=== PATIENT | female | born 1965 | race Caucasian/White ===

== ENCOUNTER → 2017-10-31 09:03 | Outpatient (CLI) | payer BC, SELFPAY ==
[2017-10-31 11:09] LABS: Anion Gap 8 (5-15); BUN 18 mg/dL (7-18); BUN/Creat Ratio 19.7 RATIO (10-20); Calcium,Total 8.9 mg/dL (8.5-10.1); Chloride 105 mmol/L (98-107); Creatinine, Serum 0.91 mg/dL (0.55-1.02); EST Glomerular Filtration Rate 69 mL/min (>60); Est Glom Filt Rate - Afr Amer 83 mL/min (>60); Glucose 80 mg/dL (74-106); Potassium 3.8 mmol/L (3.5-5.1); Sodium Level 137 mmol/L (136-145)
== END ==
PROVIDERS: Family Provider Family Medicine; PCP Family Medicine; Visit Provider Family Medicine
DX: I10 Essential (primary) hypertension (principal)
CPT/HCPCS: 36415; 80048

== ENCOUNTER → 2018-01-18 07:28 | Outpatient (CLI) | payer BC, SELFPAY ==
[2018-01-18 10:37] LABS: Anion Gap 6 (5-15); BUN 20 mg/dL (7-18); BUN/Creat Ratio 22.5 RATIO (10-20); Calcium,Total 9.2 mg/dL (8.5-10.1); Chloride 103 mmol/L (98-107); Cholesterol 206 mg/dL (200); Creatinine, Serum 0.89 mg/dL (0.55-1.02); EST Glomerular Filtration Rate 71 mL/min (>60); Est Glom Filt Rate - Afr Amer 86 mL/min (>60); Glucose 93 mg/dL (74-106); High Density Lipoprotein 55 mg/dL; Potassium 4.6 mmol/L (3.5-5.1); Sodium Level 137 mmol/L (136-145); Triglycerides 61 mg/dL; Very Low Density Lipoprotein 12 mg/dL (5-40)
== END ==
PROVIDERS: Family Provider Family Medicine; PCP Family Medicine; Visit Provider Family Medicine
DX: G43.909 Migraine, unspecified, not intractable, without status migrainosus (principal)
CPT/HCPCS: 36415; 80048; 80061

== ENCOUNTER → 2019-07-25 13:42 | Outpatient (CLI) | payer OTHER, SELFPAY ==
--- NOTE | 2019-07-25 14:42 | NEURO ---
NCS and/or EMG Patient Report Ordering Doctor: Facundo Torres DATE OF SERVICE: 07/25/19 Beverly Graves is a 54-year-old female presents for electrodiagnostic testing of the left upper limb. She has numbness and tingling in the left hand. Next Electrodiagnostic findings: Left median motor nerve demonstrates normal distal latency, amplitude and conduction velocity. Normal left ulnar motor response, including conduction across the elbow. Prolonged left median sensory latency at the wrist. Normal ulnar and radial sensory responses. On needle EMG, all muscles tested in the left upper limb showed no evidence of denervation with normal motor unit action potentials. Electrodiagnostic impression: This is an abnormal study in the left upper limb. 1. Electrodiagnostic findings demonstrate left-sided median mononeuropathy. This is consistent with a mild left carpal tunnel syndrome. 2. No electrodiagnostic evidence is noted for ulnar neuropathy. 3. Electrodiagnostic evidence for cervical radiculopathy. If there are any further questions, please do not hesitate to contact me
== END ==
PROVIDERS: Family Provider Family Medicine; PCP Family Medicine; Referring Provider Physician Assistant Surgical; Visit Provider Physician Assistant Surgical
DX: M54.12 Radiculopathy, cervical region (principal); R20.2 Paresthesia of skin
CPT/HCPCS: 95886; 95910

== ENCOUNTER → 2019-10-04 09:38 | Outpatient (CLI) | payer OTHER, SELFPAY ==
[2019-09-04 10:59] VITALS: BMI 33.0
--- NOTE | 2019-10-05 10:59 | PFT ---
INTRODUCTION: The patient is a 54-year-old female that presents for pulmonary function studies secondary to a diagnosis of shortness of breath. Respiratory therapy reports good patient effort. Bronchodilators were used during testing. INTERPRETATION: Forced expiration spirometry demonstrates no evidence of a large airways obstructive ventilatory defect. There was no significant response to aerosolized bronchodilators. Spirograms are of good quality and plateau normally. The respiratory flow volume loop appears normal. Body plethysmography was performed and reveals lung volumes to be within normal limits. Diffusing capacity by single breath CO is at the lower limits of normal. IMPRESSION: Normal spirometry and lung volumes. Diffusing capacity is at the lower limits of normal.
== END ==
PROVIDERS: Family Provider Family Medicine; PCP Family Medicine; Referring Provider Internal Medicine Critical Care Medicine; Visit Provider Internal Medicine Critical Care Medicine
DX: R05 Cough (principal); R06.02 Shortness of breath
CPT/HCPCS: 94060; 94726; 94729

== ENCOUNTER → 2019-10-17 12:55 | Outpatient (CLI) | payer OTHER, SELFPAY ==
[2019-09-04 10:59] VITALS: BMI 33.0
--- NOTE | 2019-10-17 13:00 | SP.MBSS_ITS ---
PRIMARY / SECONDARY DIAGNOSIS: dysphagia (R13.10) REFERRING PHYSICIAN: Dr. Luis Mcginnis MD. CURRENT DIET: regular textures, thin liquids DENTITION: WFL MENTAL STATUS: WNL RESPIRATORY STATUS: O2 via room air REASON FOR REFERRAL: The Patient is a 54 year old female referred for a modified barium swallow (MBS) study to objectively assess the Patients oropharyngeal swallow function under fluoroscopy secondary to reported coughing / choking over the past 3-4 months during ingestion of thin liquids (seldom with semisolids and solids); further reports transient motility based symptomology, with one incident in particularly resulting in ER visitation, with solid texture eventually expectorated; she reports she was able to breath throughout the episode, with the material removed without an acidic taste. MEDICAL HISTORY: Sinusitis, chronic coughing, history of bronchitis, history of pneumonia, hyperlipidemia, hypertension, atrial septal defect, history of parathyroidectomy, history of tubal ligation, history of tonsillectomy. PREVIOUS MODIFIED BARIUM SWALLOW STUDY: None ASSESSMENT PARAMETERS: The Patient participated in a Modified Barium Swallow (MBS) study on 10/17/2019. Dr. Freed was the radiologist present for this evaluation. This study was recorded in the lateral view and images were sent to PACs for storage. Scoring was completed through each trial using the 8-point Penetration-Aspiration Scale (PAS) and summarized via the Videofluoroscopic Dysphagia Scale (VDS) and the Bolus Residue Scale (BRS), with severity scoring through the Dysphagia Severity Rating Scale (DSRS) and the Swallowing Performance Scale (SPS), and recommended diet textures through the International Dysphagia Diet Standardisation Initiative (IDDSI) RESULTS OF THE EVALUATION: The Patient presents with mild oropharyngeal dysphagia (DSRS: 2; SPS: 3) with intermittent shallow transient penetration of thin liquids and mild pharyngeal phase retention. OBJECTIVE ASSESSMENT OF SWALLOW FUNCTION (QUANTITATIVE ? PER TRIAL): PENETRATION / ASPIRATION SCALE (MATHIS): 1 = does not enter airway 2 = enters airway/above vocal folds/ejected 3 = enters airway/above vocal folds/not ejected 4 = enters airway/contacts vocal folds/ejected 5 = enters airway/contacts vocal folds/not ejected 6 = enters airway/below vocal folds/ejected 7 = enters airway/below vocal folds/not ejected despite effort 8 = enters airway/below vocal folds/no effort PENETRATION / ASPIRATION SCALE (SCORE): Thin liquid - 5 mL tsp.: 1 Thin liquids via cup (single sip): 1 Thin liquids via cup (single sip): 2 Thin liquids via cup (single sip): 1 Thin liquids via straw (single sip): 1 Thin liquids via straw (sequential swallows): 1 Pudding via spoon: 1 Regular textured cookie: 1 Thin liquids via straw (chin tuck): 1* Thin liquids via straw (chin tuck): 2 Thin liquids via straw (chin tuck): 1 * denotes suboptimal execution OBJECTIVE ASSESSMENT OF SWALLOW FUNCTION (QUANTITATIVE ? AGGREGATE): VIDEOFLOROSCOPIC DYSPHAGIA SCALE (VDS): LIP CLOSURE: 0 (of 4) Intact BOLUS FORMATION: 0 (of 6) Intact MASTICATION: 0 (of 8) Intact APRAXIA: 0 (of 4.5) None TONGUE TO PALATE CONTACT: 0 (of 10) Intact PREMATURE BOLUS LOSS: 1.5 (of 4.5) <10% ORAL TRANSIT TIME: 0 (of 3) < 1.5s TRIGGERING OF PHARYNGEAL SWALLOW: 0 (of 4.5) Normal VALLECULAR RESIDUE: 4 (of 6) 10-50% LARYNGEAL ELEVATION: 9 (of 9) Impaired PYRIFORM SINUS RESIDUE: 9 (of 13.5) 10-50% COATING OF PHARYNGEAL WALL: 9 (of 9) Yes PHARYNGEAL TRANSIT TIME: 0 (of 6) <1.0s ASPIRATION: 6 (of 12) Supraglottic penetration BOLUS RESIDUE SCALE (BRS): 4 (of 6) residue in valleculae and piriforms OBJECTIVE ASSESSMENT OF SWALLOW FUNCTION (SEVERITY GRADING): DYSPHAGIA SEVERITY RATING SCALE (DSRS): 2 (mild) SWALLOWING PERFORMANCE SCALE (SPS): 3 (mild) OBJECTIVE ASSESSMENT OF SWALLOW FUNCTION (QUALITATIVE): ORAL PREPARATORY PHASE: competent bolus manipulation with fragmented swallowing (piecemeal deglutition) likely anticipatory in nature; sufficient anterior oral containment during oral manipulation; preserved management of breathing / bolus formation without disrupted E ? S ? E pattern ORAL TRANSITIONAL PHASE: no presence of transitional incompetence; sufficient bolus transportation; no bolus consolidation impairments; premature posterior bolus loss during execution of the chin tuck posture. PHARYNGEAL PHASE: no signs of pharyngeal dyssynchrony; mild reduction in anterior laryngeal excursion; sufficient / consistent laryngeal vestibule pressure generated to expel penetrated material; mild ? moderate pharyngeal dysmotility with consolidation within the vallecula (primarily with more viscous textures) and pyriforms (primarily with thin liquids); no signs of velopharyngeal impairments; intermittent transient shallow prandial penetration with complete ejection during trials of thin liquids; no further penetration / aspiration throughout trials. ESOPHAGEAL PHASE: no obvious esophageal phase abnormalities observed. CONTRIBUTING / COMPLICATING FACTORS AND NOTABLE FINDINGS: suspected cervical osteophytes located at the C-3 C-6 levels, possibly contributing to pharyngoesophageal motility disturbances. RESPONSE TO STRATEGIES: no direct benefit noted with execution of the chin tuck posture; mild benefits with reduction in bolus rate / volume adjustments. DYSPHAGIA ASSOCIATED MEDICAL CONSIDERATIONS / INTERVENTION CONSIDERATIONS: No aspiration noted throughout trials, despite the Patient notably coughing on 3 occasions following trials with and without transient shallow penetration events, though even this would not be expected to consistently elicit a cough response. I would consider additional assessment of the Patients esophageal phase functioning via gastroenterology given her reported symptoms which do correlate with esophageal phase dysphagia, though no obvious dysfunction was noted this date. INTERVENTION RECOMMENDATIONS AND CONSIDERATIONS: The Patient would likely benefit from 2-3 follow up skilled speech-language intervention sessions primarily targeting diet texture management and training / implementation of recommended compensatory strategies; and Patient education regarding dysphagia symptomology and optimal intake behaviors. POST ASSESSMENT EDUCATION: Results and recommendations were discussed with the Patient immediately following MBS completion, with the Patient verbalizing understanding and agreement with all recommendations and education provided. We discussed factors impacting effects of aspiration, to include: the quantity of aspiration, the depth of aspiration (trachea or distal airways), and the physical properties of the aspirate. We also discussed consequences of oropharyngeal dysphagia, to include pulmonary complications from tracheobronchial aspiration; potential for airway obstruction / asphyxiation; inadequate oral intake because of dysphagia; and possible complications in overall course of care. I provided brief overview of signs and symptoms of aspiration, with recommendations for the Patient to further discuss symptoms with the Patients primary care provider. DIET TEXTURE RECOMMENDATIONS: Will recommend a regular textured (IDDSI: 7), regular ? soft textured (IDDSI: 6), thin liquid diet (IDDSI: 0) diet RECOMMENDED COMPENSATORY STRATEGIES: Consider cutting tougher textures into bite sized pieces, reduced bolus volume / rate of ingestion, liquid chaser at reasonable intervals, seated upright at 90 degrees during PO intake, remain upright for 30-60 minutes post meal (GERD precaution), medications one at a time with a liquid chaser. IMAGE COUNT: [id number] Eleazar Lu M.A., CCC-HANDS HANGER, CBIS MBSImP Certified, LSVT Certified [facility] Speech-Language Pathology Department [email or web address]
--- NOTE | 2019-10-17 13:00 | RAD_ITS ---
STUDY: SWALLOWING STUDY REASON FOR EXAM: Female, 54 years old. FREQUENT CHOKING TECHNIQUE: The examination was performed with Speech Pathology in attendance. Under fluoroscopic observation, the patient ingested thin barium, thick barium, barium pudding, and barium coated cracker. FLUOROSCOPY TIME: 1:07 minutes/seconds. 1408 fluoroscopic images were obtained. RADIOLOGIST INVOLVEMENT: Radiologist was present and providing direct supervision. COMPARISON: None. FINDINGS: The following was observed during swallowing of the various mixtures of barium: Thin Barium: There was no evidence of aspiration or laryngeal penetration. Barium Pudding: There was no evidence of aspiration or laryngeal penetration. Barium Coated Cracker: There was no evidence of aspiration or laryngeal penetration. RAD/Swallowing Function w/Video IMPRESSION: Normal tailored barium swallow study. No evidence of increased risk for aspiration. The swallow study findings were discussed with the patient by the speech pathologist at the conclusion of the examination. Please see speech pathology report for more information and recommendations. Electronically Signed: Uziel Freed, at 13:52 EST , Service support ,
== END ==
PROVIDERS: Family Provider Family Medicine; PCP Family Medicine; Referring Provider Internal Medicine Critical Care Medicine; Visit Provider Internal Medicine Critical Care Medicine
DX: R13.10 Dysphagia, unspecified (principal)
CPT/HCPCS: 74230; 92611

== ENCOUNTER → 2020-02-20 | Outpatient (CLI) | payer OTHER, SELFPAY ==
[2019-11-29 06:20] VITALS: BMI 32.5
[2020-02-25 16:20] LABS: HPV Reflexed? NOT INDICATED
== END | disposition home or self-care (01) ==
PROVIDERS: PCP Family Medicine; Visit Provider Nurse Practitioner Adult Health
DX: Z00.00 Encounter for general adult medical examination without abnormal findings (principal)
CPT/HCPCS: 88175; G0145

== ENCOUNTER → 2020-02-25 16:24 | Outpatient (CLI) | payer OTHER, SELFPAY ==
[2019-11-29 06:20] VITALS: BMI 32.5
--- NOTE | 2020-02-25 16:25 | BI_ITS ---
MAMMOGRAPHY - BILATERAL SCREENING REASON FOR EXAM: Female, 54 years old. Routine annual screening examination. PERTINENT HISTORY: Aunt with breast cancer. TECHNIQUE: Digital bilateral breast johny (3D mammographic acquisition) in the CC and MLO projections. 2-D mediolateral oblique (MLO) and craniocaudad (CC) views of both breasts were obtained. CAD: Full Field Digital Mammography with Computer Added Detection was performed. COMPARISON: Comparison is made with prior study dated September 15, 2016 and August 19, 2015. FINDINGS: Breast Composition: The breasts are heterogeneously dense, which may obscure small masses. There are no dominant masses or suspicious calcifications. No other significant abnormalities are identified. There has been no significant change since the prior study. BI/SCREEN MAMM (CAD) W/JOHNY BILAT IMPRESSION: Stable bilateral screening mammogram. Yearly follow-up mammogram recommended. (A) ASSESSMENT CATEGORY: BIRADS Category 1: Negative. A letter regarding these results will be sent to the patient by the facility within 30 days. Approximately 10% of breast cancers are not detected by mammography. A normal mammogram should not delay biopsy of a clinically suspicious abnormality. [id number] Electronically Signed: Uziel Freed, at 8:13 EDT , Service support ,
== END ==
PROVIDERS: PCP Family Medicine; Referring Provider Nurse Practitioner Adult Health; Visit Provider Nurse Practitioner Adult Health
DX: Z12.31 Encounter for screening mammogram for malignant neoplasm of breast (principal)
CPT/HCPCS: 77063; 77067

== ENCOUNTER → 2020-02-29 10:06 | Outpatient (CLI) | payer OTHER, SELFPAY ==
[2019-11-29 06:20] VITALS: BMI 32.5
--- NOTE | 2020-02-29 10:10 | RAD_ITS ---
STUDY: X-RAY - PELVIS REASON FOR EXAM: Female, 54 years old. INFLAMMATORY POLYARTHROPATHY TECHNIQUE: One view of the pelvis was obtained. COMPARISON: None. FINDINGS: There is a non-specific bowel gas pattern. Prior tubal ligation clips are seen. Normal bilateral iliac wings, sacroiliac joints and visualized sacrum. Normal visualized bilateral superior and inferior pubic rami. Normal pubic symphysis. Normal ischial tuberosities. Normal visualized right femoral head. There is osteoarthritic spur formation of the right acetabular rim. There is moderate articular joint space narrowing of the right hip. Normal visualized left femoral head. There is osteoarthritic spur formation of the left acetabular rim. There is moderate articular joint space narrowing of the left hip. RAD/Pelvis 1 or 2 Views IMPRESSION: Bilateral acetabular spurring with moderate degree of joint space narrowing of both hip joints. Electronically Signed: Uziel Freed, at 15:08 EDT , Service support ,
[2020-02-29 12:23] LABS: Absolute Lymphocyte Count 2.14 X10^3/uL (0.83-4.51); Absolute Neutrophil Count 3.4 X10^3/uL (2.0-7.7); Basophil# 0.05 X10^3/uL; Basophil% 0.8 % (0-1); Eosinophil# 0.29 X10^3/uL; Eosinophils% 4.7 % (0-5); Hematocrit 34.3 % (37-47); Hemoglobin 11.7 g/dL (12.0-15.0); Lymphocyte # 2.14 X10^3/ul (4.0); Lymphocyte % 34.3 % (19-41); Mean Corp Hgb Conc 34.1 g/dL (32-36); Mean Corpuscular Hgb 29.8 pg (27.0-32.0); Mean Corpuscular Volume 87.3 fL (81-99); Mean Platelet Vol. 10.7 fl (6.2-12.0); Monocyte# 0.38 X10^3/uL; Monocyte% 6.1 % (0-10); NRBC Flagged by Analyzer 0 % (0-5); Neutrophil # 3.35 X10^3/uL (2.7-7.7); Neutrophil % 53.8 % (47-70); Platelet Count 263 K/mm3 (150-450); RBC Distribution Width CV 12.3 % (11.6-14.6); RBC Distribution Width SD 38.8 fl (35.1-43.9); Red Blood Count 3.93 M/mm3 (4.2-5.4); White Blood Count 6.2 K/mm3 (4.4-11.0)
[2020-02-29 12:34] LABS: Erythrocyte Sedimentation Rate 21 mm/hr (0-30)
[2020-02-29 12:46] LABS: ALB/GLOB Ratio 1.1 RATIO (0.9-2.4); AST(SGOT) 26 U/L (15-37); Alanine Aminotransfer ALT/SGPT 51 U/L (13-56); Albumin, Serum 3.7 g/dL (3.2-5.0); Alkaline Phosphatase 107 U/L (45-117); Anion Gap 8 (5-15); BUN 16 mg/dL (7-18); BUN/Creat Ratio 20.9 RATIO (10-20); CRP 4.73 mg/L (0.0-3.0); Calcium,Total 9.3 mg/dL (8.5-10.1); Chloride 105 mmol/L (98-107); Creatinine, Serum 0.76 mg/dL (0.55-1.02); EST Glomerular Filtration Rate 84 mL/min (>60); Est Glom Filt Rate - Afr Amer 101 mL/min (>60); Globulin 3.5 g/dL (2.2-4.2); Glucose 85 mg/dL (74-106); Potassium 4.1 mmol/L (3.5-5.1); Protein, Total 7.2 g/dL (6.4-8.2); Rheumatoid Factor < 10.0 IU/mL (<15); Sodium Level 138 mmol/L (136-145)
[2020-02-29 13:03] LABS: Hepatitis B Surface Antibody Non-Reactive; Hepatitis B Surface Antigen Non-Reactive (Nonreactive); Hepatitis C Antibody Non-Reactive (Nonreactive)
[2020-03-03 20:42] LABS: ANTINUCLEAR ANTIBODIES DIRECT Negative (Negative)
[2020-03-04 04:03] LABS: CCP IgG Antibodies 4 units (0-19); Hepatitis B Core AB IgM Negative (Negative)
== END ==
PROVIDERS: PCP Family Medicine; Referring Provider Internal Medicine Rheumatology; Visit Provider Internal Medicine Rheumatology
DX: M06.4 Inflammatory polyarthropathy (principal); M79.7 Fibromyalgia; M50.30 Other cervical disc degeneration, unspecified cervical region; M47.897 Other spondylosis, lumbosacral region; K21.9 Gastro-esophageal reflux disease without esophagitis; I10 Essential (primary) hypertension; Z87.74 Personal history of (corrected) congenital malformations of heart and circulatory system
CPT/HCPCS: 36415; 72170; 80053; 85025; 85652; 86038; 86140; 86200; 86431; 86705; 86706; 86803; 87340

== ENCOUNTER → 2020-03-04 08:52 | Outpatient (CLI) | payer OTHER, SELFPAY ==
[2019-11-29 06:20] VITALS: BMI 32.5
[2020-03-04 10:27] LABS: Anion Gap 5 (5-15); BUN 12 mg/dL (7-18); BUN/Creat Ratio 14.1 RATIO (10-20); Calcium,Total 9.7 mg/dL (8.5-10.1); Chloride 105 mmol/L (98-107); Cholesterol 241 mg/dL (200); Creatinine, Serum 0.85 mg/dL (0.55-1.02); EST Glomerular Filtration Rate 74 mL/min (>60); Est Glom Filt Rate - Afr Amer 89 mL/min (>60); Glucose 94 mg/dL (74-106); High Density Lipoprotein 52 mg/dL; Potassium 4.1 mmol/L (3.5-5.1); Sodium Level 139 mmol/L (136-145); Triglycerides 184 mg/dL; Very Low Density Lipoprotein 37 mg/dL (5-40)
== END ==
PROVIDERS: PCP Family Medicine; Referring Provider Family Medicine; Visit Provider Family Medicine
DX: I10 Essential (primary) hypertension (principal)
CPT/HCPCS: 36415; 80048; 80061

== ENCOUNTER → 2020-04-14 08:20 | Outpatient (CLI) | payer OTHER, SELFPAY ==
[2019-11-29 06:20] VITALS: BMI 32.5
[2020-04-14 09:58] LABS: Absolute Lymphocyte Count 1.78 X10^3/uL (0.83-4.51); Absolute Neutrophil Count 4.5 X10^3/uL (2.0-7.7); Basophil# 0.02 X10^3/uL; Basophil% 0.3 % (0-1); Eosinophil# 0.13 X10^3/uL; Eosinophils% 1.9 % (0-5); Hematocrit 38.4 % (37-47); Hemoglobin 12.8 g/dL (12.0-15.0); Lymphocyte # 1.78 X10^3/ul (4.0); Lymphocyte % 25.9 % (19-41); Mean Corp Hgb Conc 33.3 g/dL (32-36); Mean Corpuscular Hgb 30.2 pg (27.0-32.0); Mean Corpuscular Volume 90.6 fL (81-99); Mean Platelet Vol. 10.7 fl (6.2-12.0); Monocyte# 0.47 X10^3/uL; Monocyte% 6.8 % (0-10); NRBC Flagged by Analyzer 0 % (0-5); Neutrophil # 4.46 X10^3/uL (2.7-7.7); Platelet Count 224 K/mm3 (150-450); RBC Distribution Width CV 13.2 % (11.6-14.6); RBC Distribution Width SD 42.8 fl (35.1-43.9); Red Blood Count 4.24 M/mm3 (4.2-5.4); White Blood Count 6.9 K/mm3 (4.4-11.0)
[2020-04-14 10:13] LABS: AST(SGOT) 21 U/L (15-37); Alanine Aminotransfer ALT/SGPT 43 U/L (13-56); Albumin, Serum 3.5 g/dL (3.2-5.0); Alkaline Phosphatase 87 U/L (45-117); Anion Gap 5 (5-15); BUN 17 mg/dL (7-18); BUN/Creat Ratio 23.2 RATIO (10-20); Calcium,Total 9.4 mg/dL (8.5-10.1); Chloride 104 mmol/L (98-107); Creatinine, Serum 0.73 mg/dL (0.55-1.02); EST Glomerular Filtration Rate 87 mL/min (>60); Est Glom Filt Rate - Afr Amer 106 mL/min (>60); Globulin 3.6 g/dL (2.2-4.2); Glucose 94 mg/dL (74-106); Potassium 3.9 mmol/L (3.5-5.1); Protein, Total 7.1 g/dL (6.4-8.2); Sodium Level 136 mmol/L (136-145)
== END ==
PROVIDERS: PCP Family Medicine; Referring Provider Internal Medicine Rheumatology; Visit Provider Internal Medicine Rheumatology
DX: M06.4 Inflammatory polyarthropathy (principal); M79.7 Fibromyalgia; M50.30 Other cervical disc degeneration, unspecified cervical region; M47.897 Other spondylosis, lumbosacral region; K21.9 Gastro-esophageal reflux disease without esophagitis; I10 Essential (primary) hypertension; Z87.74 Personal history of (corrected) congenital malformations of heart and circulatory system; Z79.899 Other long term (current) drug therapy
CPT/HCPCS: 36415; 80053; 85025

== ENCOUNTER → 2020-05-22 16:21 | Outpatient (CLI) | payer OTHER, SELFPAY ==
[2019-11-29 06:20] VITALS: BMI 32.5
--- NOTE | 2020-05-22 16:10 | EMB_PTH ---
PATIENT: JOY HARO LOC: [facility] U#:[id number] AGE/SX: 60/F ROOM: RE05/22/[address]: Dr. Dara Payton DO : 1965 BED: DIS: SPEC #: [id number] RECD: 05/22/20 17:22 STATUS: LEE LAUREN #: [id number] SIVA: 05/22/20 16:[address]: Dara Payton DEPT: SURGICAL PATHOLOGY RECD BY: Eleazar Bonilla ENTERED: 05/23/20 09:01 SP TYPE: ENDOM BX/C PEDRO DR: Dr. Дмитрий Cantor MD Tissues: Endometrium, NOS Procedures: Surgery Specimen Level IV HEADER OPERATION: Endometrial biopsy PRE-OP DIAGNOSIS: Irregular bleeding TISSUE SUBMITTED: Endometrial biopsy MICROSCOPIC DIAGNOSIS Endometrial biopsy: Proliferative endometrium. Fragments of benign endocervical mucosa. SJ:janelle 05/27/20 MICROSCOPIC DESCRIPTION Slides are reviewed. GROSS DESCRIPTION Received in fixative is one container labeled with the patient's name and designated endometrial biopsy. The specimen consists of multiple fragments of hemorrhagic soft tissue mixed with ba mucoid tissue that in aggregate measure 2.5 x 1.5 x 0.2 cm. The specimen is totally submitted in one cassette. / SJ:janelle 05/23/20 TC:4 CPT: 03734
[2020-05-22 17:50] LABS: Thyroid Stim Hormone (TSH) 2.59 uIU/mL (0.358-3.74)
== END ==
PROVIDERS: PCP Family Medicine; Visit Provider Student in an Organized Health Care Education/Training Program
DX: N92.6 Irregular menstruation, unspecified (principal)
CPT/HCPCS: 36415; 84443; 88305

== ENCOUNTER → 2020-07-14 12:59 | Outpatient (CLI) | payer OTHER, SELFPAY ==
[2020-06-18 14:30] VITALS: BMI 33.6
== END ==
PROVIDERS: PCP Family Medicine; Referring Provider Internal Medicine Cardiovascular Disease; Visit Provider Internal Medicine Cardiovascular Disease
DX: Z01.810 Encounter for preprocedural cardiovascular examination (principal); I11.9 Hypertensive heart disease without heart failure; E78.5 Hyperlipidemia, unspecified
CPT/HCPCS: 93306; A4216

== ENCOUNTER 2020-07-24 15:24 | Observation (INO) | payer OTHER, SELFPAY ==
[2019-11-29 06:20] VITALS: BMI 32.5
[2020-06-18 14:30] VITALS: BMI 33.6
--- NOTE | 2020-07-23 16:36 | HP.PCM_ITS ---
History and Physical Date of Admission: 07/24/20 Date: 07/23/2020 Name: JOY GRAVES Age: 55 Date of : 1965 Joy Graves, a 55 year old female, presents for total laparoscopic hysterectomy, bilateral salpingo-oophorectomy, cystoscopy for abnormal uterine bleeding and menorrhagia. Patient reports heavy irregular menses. She occasionally skips a month. She changes tampons and pads about 4 times daily and bleeds through them. she also has pelvic pain with her menses. She had an endometrial biopsy which was negative for dysplasia or hyperplasia and a normal TSH. She has had a tubal ligation in the past. All management options for heavy bleeding were discussed including: IUD, oral contraception, ablation, and hysterectomy. Patient elects for hysterectomy and bilateral salpingo- oophorectomy. MEDICATIONS HISTORY: Patient is also takin. amitriptyline 100 mg tablet, One tablet by mouth daily headaches 2. amlodipine 5 mg-olmesartan 40 mg tablet, One tablet by mouth once daily 3. 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 Mother: Hypertension. Father: DM II. MENSTRUAL HISTORY: LMP Known?- Definite Amount/Duration - 8 days, Regularity - Irregular, Frequency - variable days, LMP - 05/29/20, Age Onset Menarche - 12 PAST PREGNANCIES: Total Pregnancies - 1; Full Term Pregnancies - 0; Premature - 0; Abortions, Induced - 0; Abortions, Spontaneous - 1; Ectopics - 0; Multiple Births - 0; Living Children - 0 SURGICAL HISTORY: 1. 08/19/2001 Tubal with filshe clips ; Ekaterina Howell M.D. - 2. Tonsillectomy 1968 ; - 3. Lasik 1996 ; - 4. 11/02/2000 open heart surgery, for atrial septal defect repair. Had normal cardiac catheterization at this time as well. Review of Systems: GENERAL - Denies fever, or chills SKIN - Denies skin changes EYES - Denies visual changes EARS - Denies difficulty hearing NOSE - Denies nasal congestion or bleeding MOUTH - Denies sore throat or difficulty swallowing NECK - Denies pain or swelling RESPIRATORY - Denies shortness of breath or wheezing CARDIOVASCULAR - Denies palpitations or chest pain GASTROINTESTINAL - Denies nausea, vomiting, diarrhea, constipation GENITOURINARY - Denies dysuria, frequency of urination, incontinence of urine MUSCULOSKELETAL - Denies joint or muscle pain NEUROLOGICAL - Denies localized numbness or weakness PSYCHIATRIC - Denies depression or anxiety ENDOCRINE - Denies heat or cold intolerance, weight loss or gain HEMATO-IMMUNOLOGIC - Denies excessive bleeding with cuts PHYSICAL EXAM Vital Signs Temp Pulse Resp BP Pulse Ox 07/24/20 11:21 98.0 F 80 16 149/85 H 99 CONSTITUTIONAL - NAD, well nourished, and well developed SKIN - No rash, lesions, or ulcers HEENT - Normocephalic, PERRLA, EOMI LUNGS - normal respiratory rate and rhythm CARDIAC - Regular rate and rhythm without rubs, murmurs, or gallops ABDOMEN - Without hepatosplenomegaly, distention, masses, rebound, or guarding; normal bowel sounds; no hernias EXTREMITIES - No edema or calf tenderness NEUROLOGICAL - Cranial nerves II-XII grossly intact PSYCHIATRIC - A and O to time, place, person, mood and affect LABS: Laboratory Last Values COVID-19 (MARVIN) Not Detected (Not Detected) 07/17/20 09:38 Laboratory Results - last 24 hr 07/24/20 07/24/20 07/24/20 11:23 11:23 11:23 WBC 6.6 RBC 4.18 L Hgb 12.3 Hct 37.8 MCV 90.4 MCH 29.4 MCHC 32.5 RDW Std Deviation 40.4 RDW Coeff of Tamara 12.2 Plt Count 228 MPV 10.2 Sodium 137 Potassium 4.0 Chloride 105 Carbon Dioxide 26.0 Anion Gap 6 BUN 11 Creatinine 0.83 Estim Creat Clear Calc 57.79 Est GFR (MDRD) Af Amer 92 Est GFR (MDRD) Non-Af 76 BUN/Creatinine Ratio 13.3 Glucose 92 Calcium 9.6 Blood Type A NEGATIVE Antibody Screen NEGATIVE ASSESSMENT/PLAN: 1. Abnormal Uterine And Vaginal Bleeding, Unspecified Heavy menses for almost 2 years, some months bleeding twice monthly. TSH and endometrial biopsy are within normal limits. Pelvic US demonstrated normal sized uterus, normal sized ovaries. small anterior fibroid, calcification in endocervical canal Patient scheduled for TLH-BSO, cystoscopy on July 22. Reviewed R/B/A with patient today. Risks include, but are not limited to: risk of bleeding to the point of transfusion, infection, injury to surrounding tissue (bowel/bladder requiring prolonged catheter use), VTE, ICU admission. Consents signed. Patient has seen her resistance welding machine operator who performed an EKG and ECHO which was found to be within normal limits with normal ejection fraction. She has also recently seen her primary care physician. Cleared by both for surgery.
[2020-07-24] VITALS (9 sets, daily range): BP systolic 128–149; BP diastolic 69–98; PULSE 73–84; RESP 14–18; TEMP 36.1–36.7; O2SAT 94–99; BMI 33.2
[2020-07-24 11:33] LABS: Hematocrit 37.8 % (37-47); Hemoglobin 12.3 g/dL (12.0-15.0); Mean Corp Hgb Conc 32.5 g/dL (32-36); Mean Corpuscular Hgb 29.4 pg (27.0-32.0); Mean Corpuscular Volume 90.4 fL (81-99); Mean Platelet Vol. 10.2 fl (6.2-12.0); Platelet Count 228 K/mm3 (150-450); RBC Distribution Width CV 12.2 % (11.6-14.6); RBC Distribution Width SD 40.4 fl (35.1-43.9); Red Blood Count 4.18 M/mm3 (4.2-5.4); White Blood Count 6.6 K/mm3 (4.4-11.0)
[2020-07-24] MEDS: Lactated Ringers 1,000 ML 100 ML IV ×2 (11:33→14:45)
[2020-07-24 12:09] LABS: Anion Gap 6 (5-15); BUN 11 mg/dL (7-18); BUN/Creat Ratio 13.3 RATIO (10-20); Calcium,Total 9.6 mg/dL (8.5-10.1); Chloride 105 mmol/L (98-107); Creatinine, Serum 0.83 mg/dL (0.55-1.02); EST Glomerular Filtration Rate 76 mL/min (>60); Est Glom Filt Rate - Afr Amer 92 mL/min (>60); Estimated Creatinine Clearance 57.79 ml/min; Glucose 92 mg/dL (74-106); Sodium Level 137 mmol/L (136-145)
[2020-07-24] MEDS: Cefotetan 2 GM in 0.9% NS 100 ML IV (12:59)
--- NOTE | 2020-07-24 13:00 | HYST_PTH ---
PATIENT: JOY HARO LOC: [facility] U#:[id number] AGE/SX: 55/F ROOM: MS310 RE07/24/[address]: Dr. Dara Payton DO : 1965 BED: 1 DIS: 07/25/2020 SPEC #: [id number] RECD: 07/24/20 15:50 STATUS: LEE REQ #: [id number] SIVA: 07/24/20 13:[address]: Dara Payton DEPT: SURGICAL PATHOLOGY RECD BY: Reena Roberts ENTERED: 07/25/20 07:01 SP TYPE: HYSTERECT OTHR DR: Dr. Дмитрий Cantor MD Tissues: Uterus, NOS Procedures: Surgery Specimen Level V HEADER OPERATION: Hysterectomy, TLH, salpingo-oophorectomy, cystoscopy PRE-OP DIAGNOSIS: Abnormal uterine bleeding TISSUE SUBMITTED: Uterus, cervix, bilateral fallopian tubes and ovaries MICROSCOPIC DIAGNOSIS Uterus, cervix, bilateral fallopian tubes and ovaries, hysterectomy and bilateral salpingo-oophorectomy: Cervix - no pathologic diagnosis. Endometrium - proliferative endometrium. Myometrium - intramural leiomyomas (largest measuring 1 cm in greatest dimension). Bilateral fallopian tubes - no pathologic diagnosis. Right ovary - no pathologic diagnosis. Left ovary - physiologic follicular cyst. SJ:janelle 07/28/20 MICROSCOPIC DESCRIPTION Slides are reviewed. GROSS DESCRIPTION Received in fixative is one container labeled with the patient's name and designated uterus, cervix, bilateral fallopian tubes and ovaries. The specimen consists of a hysterectomy specimen consisting of uterus with cervix and attached bilateral fallopian tubes and ovaries. The uterus with cervix weighs 40 gm and measures 7 x 4 x 3 cm. The serosal surface is ba, glistening. The ectocervical mucosa is unremarkable. The external os is circular in contour. The endocervical canal measures 2.5 cm in length and the endocervical mucosa is ba, glistening and unremarkable. The triangular endometrial cavity measures 4 cm in length and up to 1.5 cm in width. The endometrium is ba, glistening without any mass lesion and measures 0.1 cm in thickness. Sections of the uterine wall reveal multiple nodular masses, the largest measuring 1 cm in greatest dimension. Sections of these masses reveal ba whorled cut surfaces without areas of hemorrhage, necrosis or cystic degeneration. The uninvolved uterine wall measures up to 1.5 cm in thickness. The right fallopian tube measures 4 cm in length and 0.5 cm in diameter. The fimbrial end is identified. It is interrupted in the middle consistent with previous tubal ligation. Sections reveal unremarkable cut surfaces. The right ovary measures 2.3 x 1.8 x 1.5 cm. Sections reveal unremarkable cut surfaces. The left fallopian tube is similar appearance to right and measures 5.5 cm in length and 0.5 cm in diameter. No tubo-ovarian adhesions are identified on the right or left side. The left ovary measures 2.5 x 1.5 x 1.2 cm. Sections reveal a cyst filled with parish, turbid fluid measuring 1 cm in greatest dimension. Jaw Skinner sections are submitted in ten cassettes as follows: 1 - anterior cervix, 2 - posterior cervix, 3 & 4 - anterior uterine wall, 5 & 6 - posterior uterine wall, section of uterine wall also contains the nodular masses, 7 - nodular masses, 8 - right fallopian tube and ovary, 9 - left fallopian tube and ovary, 10 - left ovary. / SJ:rg 07/25/20 TC:1 CPT: 73452
--- NOTE | 2020-07-24 15:10 | PCM.OPRPT ---
Report of Operation Date of Procedure: 07/24/20 Pre-Operative Diagnosis: Abnormal uterine bleeding, menorrhagia, pelvic pain Post-Operative Diagnosis: Abnormal uterine bleeding, menorrhagia, pelvic pain Surgery/Procedure Performed:: Total laparoscopic hysterectomy bilateral salpingo-ophorectomy, cystoscopy Description of Surgical Findings:: Normal appearing external genitalia. Uterus with minimal descensus, sounded to 7 cm. Normal-appearing bilateral fallopian tubes and ovaries. Filshie clip noted in the posterior cul-de-sac. Normal-appearing uterus without fibroids. Small amount of adhesions of bowel fat to right pelvic sidewall. 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 All risks, benefits, alternatives were discussed with the patient. Risks include but are not limited to: Risk of bleeding to the point of transfusion, infection, injury to surrounding tissue including bowel or bladder requiring prolonged Ackerman catheter use, VTE, ICU admission. Patient is aware and consented. Patient was taken to the operating room and placed under general anesthesia. Patient was placed in dorsal lithotomy position prepped and draped in the usual sterile fashion. Ackerman catheter placed in the bladder. Single-tooth tenaculum placed on anterior lip of the cervix, weighted speculum placed in the posterior vagina, and Hess retractor used to visualize entire cervix. Uterus sounded to 7 cm, cervix partially dilated. Uterine manipulator placed and sutured in with [id number] sutures at 3 and 9 o'clock position. Gloves were changed and attention turned to the anterior abdominal wall. A 2 cm supraumbilical incision made vertically. Subcutaneous tissue dissected using RP and blunt dissection. Fascia was grasped with 2 Fawn clamps and incised between. Fascia tagged with suture on either side of the incision. Peritoneum was entered bluntly. A 10 mm Bryant port placed. Balloon insufflated and trocar tied to suture. Inspection of the abdominal cavity noted normal-appearing bilateral tubes and ovaries normal-appearing cervix, small amount of adhesions on the right pelvic sidewall. Right and left 5 mm trocar ports placed under direct visualization. Attention turned to the left of the pelvis, left ureter identified. Left round ligament incised using monopolar cautery vesicouterine peritoneum identified and bladder flap created. Left IP ligament grasped coagulated in 2 locations sequentially and cut. Dissection carried towards the uterus in a similar fashion. Broad ligament further dissected using monopolar cautery. Bladder flap further developed using monopolar cautery. Attention then turned to right pelvic sidewall. Ureter was identified. Right round ligament identified and cauterized. Vesicouterine peritoneum identified on this side bladder flap carried down towards the midline. Right IP ligament coagulated sequentially to locations and cut. This was then carried toward seizures in a similar fashion. Broad ligament dissected using monopolar cautery to skeletonize the uterine arteries. Right uterine artery was coagulated and cut in several locations, allowing the uterine artery to fall away from the cervix and the manipulator cup. Further dissection of the bladder was made again. Left uterine artery was coagulated and cut allowing the artery to fall away from the cervix cup in a similar fashion to the right. Colpotomy made posteriorly and carried around a 360 degree manner. Uterus cervix fallopian tubes and ovaries were removed through the vagina. Insufflation was then stopped. Vaginal cuff was closed in a running locking stitch starting at the anterior apex towards midline and posterior apex towards midline these were tied in the middle. Gloves were changed and inspection of the intra-abdominal cavity was completed again, noting hemostasis. Insufflation was stopped, trochars were removed. Fascia was closed at the 10 mm port site. Skin closed with running subcuticular stitches and glue. Cystoscopy was completed with in tact bladder dome and bilateral ureteral jets. 1 Filshie clip was still noted in the posterior cul-de-sac adhesed, this was left in place due to adhesions. At the end of the procedure all needle, lap, sponge counts were correct x3.UOP 700cc - Admit VTE Documentation VTE Mechan Device Prophylaxis: SCD's
[2020-07-24] MEDS: Ketorolac 15 MG/ML Vial IV (20:12)
[2020-07-24] MEDS: 0.9% Saline Lock 10 ML Syringe IV (20:12)
[2020-07-24] MEDS: Enoxaparin 40 MG/0.4 ML Syringe SC (20:12)
[2020-07-24] MEDS: 0.9% Normal Saline 1,000 ML 125 ML IV (20:12)
[2020-07-25 00:01] VITALS: BP 130/65; PULSE 91; RESP 18; TEMP 36.6; O2SAT 96
[2020-07-25] MEDS: Acetaminophen 500 MG Tablet 1000 MG PO (00:16)
[2020-07-25 03:45] VITALS: BP 131/61; PULSE 84; RESP 14; TEMP 36.6; O2SAT 98
[2020-07-25] MEDS: 0.9% Saline Lock 10 ML Syringe IV (03:47)
[2020-07-25] MEDS: Ketorolac 15 MG/ML Vial IV (03:47)
[2020-07-25 05:46] LABS: Hematocrit 30.9 % (37-47); Hemoglobin 10.6 g/dL (12.0-15.0); Mean Corp Hgb Conc 34.3 g/dL (32-36); Mean Corpuscular Hgb 30.5 pg (27.0-32.0); Mean Platelet Vol. 10.6 fl (6.2-12.0); Platelet Count 229 K/mm3 (150-450); RBC Distribution Width CV 11.9 % (11.6-14.6); RBC Distribution Width SD 38.5 fl (35.1-43.9); Red Blood Count 3.47 M/mm3 (4.2-5.4); White Blood Count 11.5 K/mm3 (4.4-11.0)
[2020-07-25 08:00] VITALS: BP 117/75; PULSE 80; RESP 14; TEMP 37; O2SAT 98
--- NOTE | 2020-07-25 08:13 | PN.OBGYN_ITS ---
Subjective: POD#1 Pain controlled. Voiding spontaneously. Tolerating PO. Ambulated in hallway. - Physical Exam Vitals/I&O's: Vital Signs Temp Pulse Resp BP Pulse Ox 98 F 84 14 131/61 H 98 07/25/20 03:45 07/25/20 03:45 07/25/20 03:45 07/25/20 03:45 07/25/20 03:45 Oxygen Delivery Method Room Air Weight: 79.7 kg Body Mass Index (BMI) 33.2 Intake and Output for Last 24 Hours 07/23/20 07/24/20 07/25/20 23:59 23:59 23:59 Intake Total 1645 / 2295 2214.58 / 2214.58 Output Total 2100 / 2100 Balance 1645 / 1295 114.58 / 114.58 General: Alert, Oriented x3, No apparent distress HEENT: Atraumatic, Normocephalic Neck: Supple Lungs: Clear to auscultation Cardiovascular: Regular rate, Regular Rhythm Abdomen: Bowel Sounds Present, Soft - Mildly tender Extremities: No edema Skin: No rashes Neurological: Cranial nerves II-XII grossly intact Psych/Mental Status: Normal Affect Laboratory Results 07/24/20 11:23: Blood Type A NEGATIVE, Antibody Screen NEGATIVE 07/24/20 11:23: WBC 6.6, RBC 4.18 L, Hgb 12.3, Hct 37.8, MCV 90.4, MCH 29.4, MCHC 32.5, RDW Std Deviation 40.4, RDW Coeff of Tamara 12.2, Plt Count 228, MPV 10.2 07/24/20 11:23: Sodium 137, Potassium 4.0, Chloride 105, Carbon Dioxide 26.0, Anion Gap 6, BUN 11, Creatinine 0.83, Estim Creat Clear Calc 57.79, Est GFR (MDRD) Af Amer 92, Est GFR (MDRD) Non-Af 76, BUN/Creatinine Ratio 13.3, Glucose 92, Calcium 9.6 07/25/20 05:25: WBC 11.5 H, RBC 3.47 L, Hgb 10.6 L, Hct 30.9 L, MCV 89.0, MCH 30.5, MCHC 34.3 D, RDW Std Deviation 38.5, RDW Coeff of Tamara 11.9, Plt Count 229, MPV 10.6 Current Medications Acetaminophen (Acetaminophen 500 Mg Tablet) 1,000 mg PO Q8H PRN PRN PRN Reason: Pain Score 1-3/10 or Fever Last Admin: 07/25/20 00:16 Dose: 1,000 mg Documented by: Enoxaparin Sodium (Enoxaparin 40 Mg/0.4 Ml Syringe) 40 mg SC DAILY SEE Last Admin: 07/24/20 20:12 Dose: 40 mg Documented by: Ketorolac Tromethamine (Ketorolac 10 Mg Tablet) 10 mg PO Q6H SEE Ondansetron HCl (Ondansetron 4 Mg/2 Ml Vial) 4 mg IV Q4H PRN PRN PRN Reason: NAUSEA Oxycodone HCl (Oxycodone 5 Mg Tablet) 5 - 10 mg PO Q4H PRN PRN PRN Reason: Pain Score 4-10 Sodium Chloride (0.9% Saline Lock 10 Ml Syringe) 10 - 40 ml IV UD PRN PRN Reason: SALINE FLUSH Last Admin: 07/25/20 03:47 Dose: 10 ml Documented by: Medical Necessity - Tobacco Use Smoking Status: Never smoker Tobacco Use: Non-smoker Assessment/Plan All Active Problems (Last Reviewed 06/18/20 @ 16:[address] Sin Phelps MD) Preop cardiovascular exam (Acute) Atrial septal defect (Resolved) Cough (Resolved) Shortness of breath (Resolved) 55 yo POD#1 s/p total laparoscopic hysterectomy, bilateral salpingo- oophorectomy, and cystoscopy for abnormal uterine bleeding, menorrhagia, pelvic pain. Complicated by prior repair of ASD in 2000, hypertension, acute blood loss secondary to surgery. Stable. 1. Post operative -Pain controlled. -Tolerating some PO. Voided spontaneously. -Acute blood loss anemia secondary to surgery, no need for iron. 2. History of prior ASD repair -EF wnl preop. 3. Hypertension -Resume anti-hypertensives on homegoing. BPs stable at this time. Diet: Regular IVFs: HLIV DVT PPx: SCDs, lovenox, ambulation. Dispo: Home today.
--- NOTE | 2020-07-25 08:20 | DCINST_ITS ---
Discharge Diet: No Restrictions Discharge Activity: Return to Normal Activity, May Shower May resume sexual activity in: 6 weeks Weight Bearing Status: Weight bearing as tolerated Call your doctor if your incision/area has: Continuous Slow Oozing, Increased Pain/ Swelling, Increased Redness Call your doctor if you observe: Fever of 101 or Higher, Inability to have a bowel movement, Using more than one pad per hour, Shortness of breath, Dizziness Cleanse incision/area with: Soap & Water Allergies/Adverse Reactions: Allergies bupropion [From Contrave] Allergy (Severe, Verified 07/24/20 10:59) headache/nausea naltrexone [From Contrave] Allergy (Severe, Verified 07/24/20 10:59) headache/nausea nefazodone [From Serzone] Allergy (Severe, Verified 07/24/20 10:59) tingliling orlistat [From Xenical] Allergy (Severe, Verified 07/24/20 10:59) Upset Stomach Sulfa (Sulfonamide Antibiotics) Allergy (Severe, Verified 07/24/20 10:59) Unknown duloxetine [From Cymbalta] Allergy (Intermediate, Verified 07/24/20 10:59) dizziness/nausea Medications to take at Discharge amlodipine 5 mg-olmesartan 40 mg tablet 1 tab PO DAILY 09/04/19 rosuvastatin 5 mg tablet 5 mg PO DAILY tab 06/16/20 amitriptyline 100 mg tablet 100 mg PO QHS tab 06/18/20 Oxycodone [Oxyir] 5 mg PO Q6H PRN PRN 4 Days #20 tab 07/24/20 The following prescriptions were given: Oxycodone [Oxyir] 5 mg PO Q6H PRN PRN 4 Days #20 tab PRN Reason: Pain Score 6-10 Transmission Status: Received by [facility]/pharmacy #[id number] Primary Care Physician: Дмитрий Cantor MD [Primary Care Provider] - Test Results: Test results from this visit will be discussed in further detail at your follow- up appointment, if applicable. Please Follow Up With: Dara Payton DO When: 2 weeks Proposed Discharge Date: 07/25/20
[2020-07-25 09:10] VITALS: PULSE 80
[2020-07-25] MEDS: Ketorolac 10 MG Tablet PO (09:13)
== END 2020-07-25 09:52 | disposition home or self-care (01) ==
LOC: SDC 15:53 → MS3 15:53
PROVIDERS: Anesthesiology; Admitting Provider Student in an Organized Health Care Education/Training Program; PCP Family Medicine; Referring Provider Student in an Organized Health Care Education/Training Program; Visit Provider Student in an Organized Health Care Education/Training Program
PROC: 0UT94ZZ Resection of Uterus, Percutaneous Endoscopic Approach (ICD-10-PCS; CPT 58571; principal; 2020-07-24 12:40)
DX: N92.0 Excessive and frequent menstruation with regular cycle (principal); D25.1 Intramural leiomyoma of uterus; Z79.899 Other long term (current) drug therapy; Z87.74 Personal history of (corrected) congenital malformations of heart and circulatory system; E78.00 Pure hypercholesterolemia, unspecified; I10 Essential (primary) hypertension; D62 Acute posthemorrhagic anemia; K21.9 Gastro-esophageal reflux disease without esophagitis
CPT/HCPCS: 00940; 58571; 36415; 80048; 85027; 86850; 86900; 86901; 87635; 88307; 96361; 96372; 96374; 96376; 99218; C9803; J7030; J7120; A4216; G0378; G0379; J2405; U0003

== ENCOUNTER → 2020-09-05 07:28 | Outpatient (CLI) | payer OTHER, SELFPAY ==
[2020-07-24 16:51] VITALS: BMI 33.2
[2020-09-05 10:07] LABS: Hematocrit 39.3 % (37-47); Hemoglobin 13.5 g/dL (12.0-15.0); Mean Corp Hgb Conc 34.4 g/dL (32-36); Mean Corpuscular Hgb 29.3 pg (27.0-32.0); Mean Corpuscular Volume 85.4 fL (81-99); Mean Platelet Vol. 10.7 fl (6.2-12.0); Platelet Count 278 K/mm3 (150-450); RBC Distribution Width CV 12.1 % (11.6-14.6); RBC Distribution Width SD 37.2 fl (35.1-43.9); White Blood Count 8.9 K/mm3 (4.4-11.0)
[2020-09-05 10:44] LABS: Vitamin B12 677 pg/mL (211-911)
[2020-09-05 10:48] LABS: Hemoglobin A1c 5.6 % (3.8-5.6)
[2020-09-05 10:50] LABS: Progesterone Level < 0.21 ng/mL (See Comment)
[2020-09-05 11:20] LABS: Homocysteine 8.9 umol/L (3.2-10.7)
[2020-09-05 11:34] LABS: ALB/GLOB Ratio 1.1 RATIO (0.9-2.4); AST(SGOT) 11 U/L (15-37); Alanine Aminotransfer ALT/SGPT 25 U/L (13-56); Albumin, Serum 3.8 g/dL (3.2-5.0); Alkaline Phosphatase 72 U/L (45-117); Anion Gap 5 (5-15); BUN 16 mg/dL (7-18); BUN/Creat Ratio 23.8 RATIO (10-20); CRP, High Sensitivity Cardiac 0.46 mg/L; Calcium,Total 9.4 mg/dL (8.5-10.1); Chloride 100 mmol/L (98-107); Cholesterol 164 mg/dL (200); Creatinine, Serum 0.67 mg/dL (0.55-1.02); EST Glomerular Filtration Rate 97 mL/min (>60); Est Glom Filt Rate - Afr Amer 117 mL/min (>60); Estradiol < 11.0 pg/mL; Globulin 3.4 g/dL (2.2-4.2); Glucose 91 mg/dL (74-106); High Density Lipoprotein 69 mg/dL; Iron 105 ug/dL (50-170); Luteinizing Hormone 46.8 mIU/mL; Magnesium 2.3 mg/dL (1.6-2.6); Potassium 4.1 mmol/L (3.5-5.1); Prolactin 11.6 ng/mL; Protein, Total 7.2 g/dL (6.4-8.2); Sodium Level 132 mmol/L (136-145); T4 Free Direct 1.13 ng/dL (0.76-1.46); Thyroid Stim Hormone (TSH) 1.88 uIU/mL (0.358-3.74); Triglycerides 72 mg/dL; Very Low Density Lipoprotein 14 mg/dL (5-40)
[2020-09-11 08:08] LABS: DHEA Sulfate 4.7 ug/dL (29.4-220.5); Insulin Like Growth Factor 232 ng/mL (65-216); Testosterone, Free < 0.08 ng/dL (0.10-0.85); Testosterone, Total < 3 ng/dL (3-41)
[2020-09-11 09:52] LABS: Sex Hormone-binding Globulin 25.5 nmol/L (17.3-125.0); T3 Reverse 22.7 ng/dL (9.2-24.1)
== END ==
PROVIDERS: PCP Family Medicine
DX: R53.83 Other fatigue (principal); M25.50 Pain in unspecified joint; R63.5 Abnormal weight gain; R68.83 Chills (without fever); Z79.890 Hormone replacement therapy
CPT/HCPCS: 36415; 80053; 80061; 82306; 82533; 82607; 82627; 82670; 82746; 83002; 83036; 83090; 83540; 83735; 84144; 84146; 84270; 84305; 84402; 84403; 84439; 84443; 84481; 84482; 85027; 86141; 82626

== ENCOUNTER → 2020-09-25 10:46 | Outpatient (CLI) | payer OTHER, SELFPAY ==
[2020-07-24 16:51] VITALS: BMI 33.2
== END ==
PROVIDERS: PCP Family Medicine; Referring Provider Family Medicine; Visit Provider Family Medicine
DX: E27.40 Unspecified adrenocortical insufficiency (principal)
CPT/HCPCS: 36415; 82533

== ENCOUNTER → 2020-12-26 11:59 | Outpatient (CLI) | payer OTHER, SELFPAY ==
[2020-12-26 11:13] VITALS: BMI 30.1
[2020-12-28 10:31] LABS: Thyroid Peroxidase AB 10 IU/mL (0-34)
== END ==
PROVIDERS: PCP Family Medicine; Referring Provider Internal Medicine Endocrinology, Diabetes & Metabolism; Visit Provider Internal Medicine Endocrinology, Diabetes & Metabolism
DX: E27.40 Unspecified adrenocortical insufficiency (principal)
CPT/HCPCS: 36415; 86376

== ENCOUNTER 2021-01-01 07:48 | Outpatient (CLI) | payer OTHER, SELFPAY ==
[2020-12-26 11:13] VITALS: BMI 30.1
[2021-01-01 07:54] VITALS: BP 132/77; PULSE 83; RESP 16; TEMP 35.8; O2SAT 100; BMI 29.0
[2021-01-01] MEDS: Cosyntropin 0.25 MG Vial IM (08:37)
== END 2021-01-02 13:01 | disposition home or self-care (01) ==
LOC: MEDOUTP 07:49
PROVIDERS: PCP Family Medicine; Visit Provider Internal Medicine Endocrinology, Diabetes & Metabolism
DX: E27.40 Unspecified adrenocortical insufficiency (principal)
CPT/HCPCS: 36415; 82533; 96372; J0834

== ENCOUNTER → 2021-01-07 14:59 | Outpatient (CLI) | payer OTHER, SELFPAY ==
[2021-01-01 07:54] VITALS: BMI 29.0
--- NOTE | 2021-01-07 15:02 | RAD_ITS ---
INDICATION: ABD PAIN EXAMINATION/TECHNIQUE: X-RAY - XR Abdomen W/ Decub and/or Erect Views COMPARISON: None FINDINGS: BOWEL GAS PATTERN: Non-obstructive. No bowel or stomach distention. FREE AIR: Not assessed on a single supine view. ORGANOMEGALY: Not seen. CALCIFICATIONS: No abnormal calcifications observed. LOWER CHEST: No acute pathology. BONES AND SOFT TISSUES: No acute pathology. RAD/Abd Inc Decub and/or Erect IMPRESSION: Non-obstructive bowel gas pattern. Electronically Signed: Miguel Blanton MD at 17:35 EDT Tel , Service support ,
== END ==
PROVIDERS: PCP Family Medicine; Referring Provider Internal Medicine Gastroenterology; Visit Provider Internal Medicine Gastroenterology
DX: R10.9 Unspecified abdominal pain (principal); K59.00 Constipation, unspecified
CPT/HCPCS: 74019

== ENCOUNTER → 2021-09-10 12:36 | Outpatient (CLI) | payer OTHER, SELFPAY ==
--- NOTE | 2021-09-10 12:39 | BI_ITS ---
MAMMOGRAPHY - BILATERAL SCREENING REASON FOR EXAM: Female, 56 years old. Routine annual screening examination. PERTINENT HISTORY: Aunt with breast cancer. TECHNIQUE: Digital bilateral breast johny (3D mammographic acquisition) in the CC and MLO projections. 2-D mediolateral oblique (MLO) and craniocaudad (CC) views of both breasts were obtained. CAD: Full Field Digital Mammography with Computer Added Detection was performed. COMPARISON: Comparison is made with prior study dated 02/25/2020 and 09/15/2016. FINDINGS: Breast Composition: The breasts are heterogeneously dense, which may obscure small masses. There are no dominant masses or suspicious calcifications. No other significant abnormalities are identified. There has been no significant change since the prior study. BI/SCRN MAMM (CAD)W/JOHNY BILAT IMPRESSION: Stable bilateral screening mammogram. Yearly follow-up mammogram recommended. (A) ASSESSMENT CATEGORY: BIRADS Category 1: Negative. A letter regarding these results will be sent to the patient by the facility within 30 days. Approximately 10% of breast cancers are not detected by mammography. A normal mammogram should not delay biopsy of a clinically suspicious abnormality. [id number] Electronically Signed: Uziel Freed MD at 13:41 EST , Service support ,
== END ==
PROVIDERS: PCP Family Medicine; Referring Provider Nurse Practitioner Family; Visit Provider Nurse Practitioner Family
DX: Z12.31 Encounter for screening mammogram for malignant neoplasm of breast (principal); Z80.3 Family history of malignant neoplasm of breast
CPT/HCPCS: 77063; 77067

== ENCOUNTER → 2022-06-16 | Outpatient (CLI) | payer OTHER, SELFPAY ==
[2022-06-16 12:40] LABS: Hematocrit 36.5 % (37-47); Hemoglobin 12.1 g/dL (12.0-15.0); Mean Corp Hgb Conc 33.2 g/dL (32-36); Mean Corpuscular Hgb 28.3 pg (27.0-32.0); Mean Corpuscular Volume 85.5 fL (81-99); Mean Platelet Vol. 11.6 fl (6.2-12.0); Platelet Count 222 K/mm3 (150-450); RBC Distribution Width CV 12.7 % (11.6-14.6); RBC Distribution Width SD 39.5 fl (35.1-43.9); Red Blood Count 4.27 M/mm3 (4.2-5.4); White Blood Count 4.9 K/mm3 (4.4-11.0)
[2022-06-16 13:09] LABS: Anion Gap 7 (5-15); BUN 19 mg/dL (7-18); BUN/Creat Ratio 25.3 RATIO (10-20); Calcium,Total 10.2 mg/dL (8.5-10.1); Chloride 105 mmol/L (98-107); Creatinine, Serum 0.75 mg/dL (0.55-1.02); EST Glomerular Filtration Rate 85 mL/min (>60); Est Glom Filt Rate - Afr Amer 102 mL/min (>60); Glucose 86 mg/dL (74-106); Magnesium 2.1 mg/dL (1.6-2.6); Sodium Level 140 mmol/L (136-145); T4 Total, Thyroxin 10.5 ug/dL (4.8-13.9); Thyroid Stim Hormone (TSH) 2.41 uIU/mL (0.358-3.74)
== END | disposition home or self-care (01) ==
LOC: MTLAB 10:09
PROVIDERS: PCP Family Medicine; Referring Provider Internal Medicine Gastroenterology; Visit Provider Internal Medicine Gastroenterology
DX: K59.09 Other constipation (principal)
CPT/HCPCS: 36415; 80048; 83735; 84436; 84443; 85027

== ENCOUNTER → 2023-01-24 | Outpatient (CLI) | payer OTHER, SELFPAY ==
--- NOTE | 2023-01-24 10:36 | BI_ITS ---
MAMMOGRAPHY - BILATERAL SCREENING REASON FOR EXAM: Female, 57 years old. Routine annual screening examination. PERTINENT HISTORY: Aunt with breast cancer. TECHNIQUE: Digital bilateral breast johny (3D mammographic acquisition) in the CC and MLO projections. 2-D mediolateral oblique (MLO) and craniocaudad (CC) views of both breasts were obtained. CAD: Full Field Digital Mammography with Computer Added Detection was performed. COMPARISON: Comparison is made with prior study dated September 10, 2021 and February 25, 2020. FINDINGS: Breast Composition: There are scattered areas of fibroglandular density. There are no dominant masses or suspicious calcifications. No other significant abnormalities are identified. There has been no significant change since the prior study. BI/SCRN MAMM (CAD)W/JOHNY BILAT IMPRESSION: Stable bilateral screening mammogram. Yearly follow-up mammogram recommended. (A) ASSESSMENT CATEGORY: BIRADS Category 1: Negative. A letter regarding these results will be sent to the patient by the facility within 30 days. Approximately 10% of breast cancers are not detected by mammography. A normal mammogram should not delay biopsy of a clinically suspicious abnormality. [id number] Electronically Signed: Uziel Freed MD at 12:10 EDT ,
== END | disposition home or self-care (01) ==
LOC: OPBI 10:35
PROVIDERS: PCP Family Medicine; Referring Provider Family Medicine; Visit Provider Family Medicine
DX: Z12.31 Encounter for screening mammogram for malignant neoplasm of breast (principal)
CPT/HCPCS: 77063; 77067

== ENCOUNTER → 2023-08-23 | Outpatient (CLI) | payer OTHER, SELFPAY ==
--- NOTE | 2023-08-23 10:59 | BD_ITS ---
STUDY: DUAL ENERGY X-RAY ABSORPTIOMETRY / DXA REASON FOR EXAM: Female, 58 years old. N95.1 -- CLIMACTERIC TECHNIQUE: Bone Mineral Density (BMD) measurements of lumbar spine and bilateral hips were obtained. COMPARISON: Comparison is made with prior study May 07, 2010. FINDINGS: Lumbar Spine (L1-L4): g/cm2 (1.355) / T-score (2.9) / Z-score (4.2) Findings are suggestive of normal bone density with a low fracture risk. Left Femur Total: g/cm2 (1.049) / T-score (0.9) / Z-score (1.7) Left Femoral Neck: g/cm2 (0.935) / T-score (0.8) / Z-score (2.0) Right Femur Total: g/cm2 (1.060) / T-score (1.0) / Z-score (1.8) Right Femoral Neck: g/cm2 (0.935) / T-score (0.8) / Z-score (2.0) The T-Scores on the most recent prior examination were: Lumbar Spine (L1-L4): There has been worsening of bone density since the previous examination. Left Femur Total: which represents a worsening of 10.1%. Right Femur Total: which represents a worsening of 6.6%. BD/Dexa Bone Density Study IMPRESSION: The patient is considered normal as outlined below according to World Rub[employer] Organization (WHO) criteria with a low fracture risk. There has been worsening of bone density since the previous examination. Reference Information: The T-score is the number of standard deviations above or below the standard which is normal for young adults at their peak bone mineral density. The World Health Organization (WHO) interprets the T-scores as follows: Above -1 Normal bone density Between -1 and -2.5 Osteopenia Equal to / or below -2.5 Osteoporosis As a practical clinical guideline, osteopenia may be graded as follows: Mild -1 through -1.5 Moderate -1.6 through -2.0 Severe -2.1 through -2.4 The Z-score is the number of standard deviations above or below age-matched controls. A Z-score of less than -1.5 would be considered abnormal. References: 1. NIH Osteoporosis and Related Bone Diseases www osteo.org 2. International Society for Clinical Densitometry www iscd.org 3. National Osteoporosis Foundation www nof.org Electronically Signed: Uziel Freed MD at 12:54 EST ,
== END | disposition home or self-care (01) ==
LOC: OPBD 10:53
PROVIDERS: PCP Family Medicine; Referring Provider Obstetrics & Gynecology; Visit Provider Obstetrics & Gynecology
DX: N95.1 Menopausal and female climacteric states (principal)
CPT/HCPCS: 77080

== ENCOUNTER → 2024-10-10 | Outpatient (CLI) | payer OTHER, SELFPAY ==
--- NOTE | 2024-10-10 13:42 | BI_ITS ---
MAMMOGRAPHY - BILATERAL SCREENING REASON FOR EXAM: Female, 59 years old. Routine annual screening examination. PERTINENT HISTORY: Aunt with breast cancer. TECHNIQUE: Digital bilateral breast johny (3D mammographic acquisition) in the CC and MLO projections. 2-D mediolateral oblique (MLO) and craniocaudad (CC) views of both breasts were obtained. CAD: Full Field Digital Mammography with Computer Added Detection was performed. COMPARISON: Comparison is made with prior study January 24, 2023 and September 10, 2021. FINDINGS: Breast Composition: There are scattered areas of fibroglandular density. There is a 5.5 mm x 5 mm well-defined nodule in the slightly upper lateral aspect of the right breast. Correlation with ultrasound is recommended. No other significant abnormalities are identified. BI/SCRN MAMM (CAD)W/JOHNY BILAT IMPRESSION: 5.5 mm x 5 mm well-defined nodule in the slightly upper lateral aspect of the right breast. Sonographic correlation recommended. ASSESSMENT CATEGORY: BIRADS Category 0: Incomplete. Need additional imaging evaluation. A letter regarding these results will be sent to the patient by the facility within 30 days. Approximately 10% of breast cancers are not detected by mammography. A normal mammogram should not delay biopsy of a clinically suspicious abnormality. [id number] Electronically Signed: Uziel Freed MD at 8:55 EST ,
== END | disposition home or self-care (01) ==
LOC: OPBI 13:41
PROVIDERS: PCP Family Medicine; Referring Provider Family Medicine; Visit Provider Family Medicine
DX: Z12.31 Encounter for screening mammogram for malignant neoplasm of breast (principal)
CPT/HCPCS: 77063; 77067

== ENCOUNTER → 2024-10-12 | Outpatient (CLI) | payer OTHER, SELFPAY ==
--- NOTE | 2024-10-12 09:33 | US_ITS ---
STUDY: ULTRASOUND BREAST - RIGHT REASON FOR EXAM: Female, 59 years old. Abnormal screening mammogram. TECHNIQUE: Axial and longitudinal images of the RIGHT breast were performed with a high resolution ultrasound transducer. # OF IMAGES: 44 COMPARISON: Comparison is made with prior mammogram dated October 10, 2024. FINDINGS: RIGHT Breast: The upper-outer quadrant of the right breast was examined with ultrasound. The mammographic abnormality corresponds to a 6 mm x 5 mm x 4 mm benign-appearing lymph node at the 10:00 position of the breast at 3 cm from the nipple. US/Breast Limited Unilateral IMPRESSION: The mammographic abnormality corresponds to a 6 mm x 5 mm x 4 mm benign-appearing lymph node at the 10:00 position of the breast at 3 cm from nipple. Routine mammographic follow-up recommended. ASSESSMENT CATEGORY: BIRADS Category 2: Benign. A letter regarding these results will be sent to the patient by the facility within 30 days. Electronically Signed: Uziel Freed MD at 11:53 EST ,
== END | disposition home or self-care (01) ==
LOC: OPUS 09:29
PROVIDERS: PCP Family Medicine; Referring Provider Family Medicine; Visit Provider Family Medicine
DX: N63.10 Unspecified lump in the right breast, unspecified quadrant (principal)
CPT/HCPCS: 76642

== ENCOUNTER → 2024-12-26 | Outpatient (CLI) | payer OTHER, SELFPAY ==
[2024-12-26 12:08] LABS: Absolute Lymphocyte Count 1.35 X10^3/uL (0.83-4.51); Absolute Neutrophil Count 3.3 X10^3/uL (2.0-7.7); Basophil# 0.03 X10^3/uL; Basophil% 0.6 % (0-1); Eosinophil# 0.11 X10^3/uL; Eosinophils% 2.1 % (0-5); Hematocrit 38.5 % (37-47); Hemoglobin 13.1 g/dL (12.0-15.0); Lymphocyte # 1.35 X10^3/ul (0.83-4.51); Lymphocyte % 26.2 % (19-41); Mean Corpuscular Hgb 29.4 pg (27.0-32.0); Mean Corpuscular Volume 86.5 fL (81-99); Mean Platelet Vol. 11.4 fl (6.2-12.0); Monocyte# 0.38 X10^3/uL; Monocyte% 7.4 % (0-10); NRBC Flagged by Analyzer 0 % (0-5); Neutrophil # 3.28 X10^3/uL (2.7-7.7); Neutrophil % 63.5 % (47-70); Platelet Count 196 K/mm3 (150-450); RBC Distribution Width CV 12.2 % (11.6-14.6); RBC Distribution Width SD 38.8 fl (35.1-43.9); Red Blood Count 4.45 M/mm3 (4.2-5.4); White Blood Count 5.2 K/mm3 (4.4-11.0)
[2024-12-26 14:57] LABS: ALB/GLOB Ratio 1.8 RATIO (0.9-2.4); AST(SGOT) 29 U/L (<=31); Alanine Aminotransfer ALT/SGPT 31 U/L (<=34); Albumin, Serum 4.4 g/dL (3.5-5.0); Alkaline Phosphatase 55 U/L (35-104); Anion Gap 11 (5-15); BUN 17 mg/dL (4-19); BUN/Creat Ratio 22.8 RATIO (10-20); Calcium,Total 9.9 mg/dL (7.6-11.0); Chloride 102 mmol/L (98-108); Cholesterol 233 mg/dL (<=200); Creatinine, Serum 0.75 mg/dL (0.70-1.20); EST Glomerular Filtration Rate 92 (>60); Globulin 2.4 g/dL (2.2-4.2); Glucose 89 mg/dL (70-99); High Density Lipoprotein 72 mg/dL; Low Density Lipoprotein Calc. 150 mg/dL; Potassium 4.3 mmol/L (3.3-5.1); Protein, Total 6.9 g/dL (5.9-8.4); Sodium Level 136 mmol/L (133-145); Total Bilirubin 0.27 mg/dL (0.00-1.30); Triglycerides 54 mg/dL; Very Low Density Lipoprotein 11 mg/dL (5-40); cholesterol:hdl ratio screen 3.25
[2024-12-30 04:06] LABS: Testosterone Free 0.4 pg/mL (0.0-4.2)
== END | disposition home or self-care (01) ==
LOC: BWCLAB 09:47
PROVIDERS: PCP Family Medicine; Referring Provider Nurse Practitioner Family; Visit Provider Nurse Practitioner Family
DX: N95.1 Menopausal and female climacteric states (principal); E78.5 Hyperlipidemia, unspecified; Z13.29 Encounter for screening for other suspected endocrine disorder; Z13.220 Encounter for screening for lipoid disorders
CPT/HCPCS: 36415; 80053; 80061; 84402; 84439; 84443; 85025

== ENCOUNTER → 2025-05-18 | Outpatient (CLI) | payer OTHER, SELFPAY ==
--- OUTSIDE RECORDS SUMMARY | 2025-05-18 07:59 | XMS RPT_ITS | CCD ---
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 Choe Primary Care Provider [phone] Devaughn ADAM, Dr. Choe Attending Provider Devaughn ADAM, Dr. Choe Referring Provider [facility] [facility]-CFreda Attending Provider [employer] [facility]-CFreda Referring Provider Дмитрий Cantor Primary Care Unavailable Freda Chatman Attending Unavailable Freda Chatman Referring Unavailable Дмитрий Cantor Primary Care Unavailable Дмитрий Cantor Attending Unavailable Дмитрий Cantor Referring Unavailable Дмитрий Cantor Primary Care Unavailable Дмитрий Cantor Attending Unavailable Дмитрий Cantor Referring Unavailable Дмитрий Cantor Referring Unavailable Дмитрий Cantor Primary Care Unavailable Freda Chatman Attending Unavailable Allergies Allergy Classification Reported Allergen(s) Allergy Type Date of Onset Reaction(s) Facility Sulfonamides (antibiotic) (1 source) Sulfonamides (Antibiotic) Drug Allergy 7 [facility] (4 sources) buPROPion Drug Allergy 1 headache/nausea [facility] (4 sources) DULoxetine Drug Allergy 1 dizziness/nause a [facility] (4 sources) Naltrexone Drug Allergy 1 headache/nausea [facility] (4 sources) nefazodone Drug Allergy 1 tingliling [facility] (4 sources) orlistat Drug Allergy 1 Upset Stomach [facility] (4 sources) Sulfonamides (Antibiotic) Allergy to substance 1 Unknown [facility] (1 source) buPROPion Drug Allergy 5 [facility] (1 source) DULoxetine Drug Allergy 5 [facility] (1 source) Naltrexone Drug Allergy 5 [facility] (1 source) nefazodone Drug Allergy 5 [facility] (1 source) orlistat Drug Allergy 5 [facility] (1 source) Sulfonamides (Antibiotic) Drug allergy (disorder) 5 [facility] Medications Current Medications Medication Drug Class(es) Dates Sig (Normalized) Sig (Original) amLODIPine 5 mg / olmesartan medoxomil 40 mg oral tablet (5 sources) Dihydropyridine Calcium Channel Loretta, Angiotensin 2 Receptor Loretta Start: 09-04-2019 End: 12-26-2024 Amlodipine-Olmesa rtan 5-40 mg tablet Active 1 {tbl} PO daily December 26, 2024 12:00am Start: 09-04-2019 take 1 tablet by yaneth once daily Amlodipine-Olmesartan Active 1 TABLET PO DAILY September 04, 2019 12:00am 84 hr estradiol 0.99728 mg/hr transdermal system (2 sources) Estrogen Start: 12-26-2024 End: 12-26-2024 Estradiol 0.05 mg/24 hr patch semiweekly Active 1 NMA TD TWICE A WEEK December 26, 2024 11:06am apply 1 patch for 3 days alternating with 1 patch for 4 days each week for 3 wks per 4-wk cycle Pediatric Qofjevfr-Lxmx-Mix (Flintstones Complete (Iron)) tablet,chewable (4 sources) Start: 12-26-2020 Pediatric Mult aaps-Ujui-Elz (Flintstones Complete (Iron)) tablet,chewable Active 1 {tbl} PO DAILY December 26, 2020 12:00am administer with a meal Start: 12-26-2020 take 1 tablet by yaneth th once daily Pediatric Mlvflsza-Jika-Rcr (Flintstones Complete (Iron)) tablet,chewable Active 1 TABLET PO DAILY December 25, 2020 11:00pm administer with a meal Start: 12-26-2020 take 1 tablet by yaneth once daily Pediatric Wbypxaiq-Yvlh-Oir (Flintstones Complete (Iron)) tablet,chewable Active 1 TABLET PO DAILY December 26, 2020 12:00am administer with a meal progesterone 100 mg oral capsule (2 sources) Progesterone Start: 12-26-2024 End: 12-26-2024 take 1 capsule by mouth once daily in the morning Progesterone Micronized 100 mg capsule Active 100 mg PO EVERY MORNING December 26, 2024 11:07am off 7 days; repeat cycle Completed/Discontinued Medications Medication Drug Class(es) Dates Sig (Normalized) Sig (Original) amitriptyline hydrochloride 100 mg oral tablet (9 sources) Tricyclic Antidepressant Start: 06-18-2020 End: 12-26-2024 take 1 tablet by mouth at bedtime Amitriptyline 100 mg tablet Discontinued 100 mg PO AT BEDTIME June 18, 2020 12:00am December 26, 2024 9:00am Start: 08-30-2019 End: 06-18-2020 take 1 tablet by mouth once daily Amitriptyline 75 mg tablet Discontinued 75 mg PO DAILY August 30, 2019 1:00am June 18, 2020 2:33pm Start: 06-03-2010 AMITRIPTYLINE 50 MG TAB takes one tab daily. 0 0 06/03/2010 Active Comment on above: takes one tab daily. ascorbic acid 1000 mg extended release oral tablet (4 sources) Vitamin C Start: 12-26-2020 End: 12-26-2024 take 1 tablet by mouth once daily Ascorbic Acid (Vitamin C) 1,000 mg tablet extended release Discontinued 1000 mg PO DAILY December 26, 2020 12:00am December 26, 2024 9:00am atenolol 50 mg oral tablet (1 source) beta-Adrenergic Loretta Start: 06-03-2010 ATENOLOL 50 MG TAB Take one(1) tablet daily. 0 0 06/03/2010 Active Comment on above: Take one(1) tablet d aily. biotin 10 mg oral capsule (4 sources) Start: 12-26-2020 End: 12-26-2024 Biotin 10,000 mcg capsule Discontinued ug PO .daily December 26, 2020 12:00am December 26, 2024 9:00am Start: 12-26-2020 take 1 ug by mouth once daily Biotin Active MCG PO .daily December 25, 2020 11:00pm losartan potassium 100 mg oral tablet (4 sources) Angiotensin 2 Receptor Loretta Start: 08-30-2019 End: 09-04-2019 take 1 tablet by mouth once daily Losartan 100 mg tablet Discontinued 100 mg PO DAILY August 30, 2019 1:00am September 04, 2019 12:01pm multivitamins(DAILY VITAMIN TAB) (1 source) Start: 06-03-2010 multivitamins(ASHWINI Y VITAMIN TAB) Take one(1) tablet daily. 0 0 06/03/2010 Active Comment on above: Take one(1) tablet d aily. naproxen sodium 220 mg oral tablet (1 source) Nonsteroidal Anti-inflammatory Drug Start: 06-03-2010 naproxen sodium(ALEVE 220 MG TAB) takes as directed prn pain. 0 0 06/03/2010 Active Comment on above: takes as directed pr n pain. oxyCODONE hydrochloride 5 mg oral tablet (4 sources) Opioid Agonist Start: 07-24-2020 End: 07-28-2020 take 1 tablet by mouth every six hours as needed for pain Oxycodone 5 MG tablet Discontinued 5 mg PO EVERY 6 HOURS NEEDED as needed for Pain Score 6-10 20 4 July 24, 2020 July 27, 2020 1:00am July 28, 2020 1:02am rosuvastatin calcium 5 mg oral tablet (4 sources) HMG-CoA Reductase Inhibitor Start: 06-16-2020 End: 12-26-2024 take 1 tablet by mouth once daily Rosuvastatin 5 mg tablet Discontinued 5 mg PO DAILY June 16, 2020 12:00am December 26, 2024 9:00am Problems Problem Classification Problem Date Documented Da te Episodic/Chronic Cardiac and circulatory congenital anomalies (4 sources) Atrial septal defect; Translations: [Atrial septal defect] 07-23-2020 Chronic Comment on above: Closure with pericar dial patch 11/02/2000 Disorders of lipid metabolism (5 sources) Hyperlipidemia; Translations: [Hyperlipidemia, unspecified] Onset: 12-26-2024 07-23-2020 Chronic Essential hypertension (4 sources) Essential hypertension; Translations: [Essential (primary) hypertension] 07-23-2020 Chronic Menopausal disorders (3 sources) Menopausal syndrome; Translations: [Menopausal and female climacteric states] Onset: 12-31-2024 12-26-2024 Chronic Nonmalignant breast conditions (1 source) Unspecified lump in the right breast, unspecified quadrant; Translations: [Unspecified lump in the right breast, unspecified quadrant] Onset: 10-30-2024 Episodic Other endocrine disorders (4 sources) Hypoadrenalism; 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 Other gastrointestinal disorders (4 sources) Dysphagia; Translations: [Dysphagia, unspecified] 06-16-2020 Episodic Other lower respiratory disease (4 sources) Dyspnea; Translations: [Shortness of breath] 06-16-2020 Episodic Other lower respiratory disease (4 sources) Cough; Translations: [Cough] 07-23-2020 Episodic Other nutritional; endocrine; and metabolic disorders (2 sources) Body mass index 30+ - obesity; Translations: [Obesity, unspecified] 12-26-2024 Chronic Other screening for suspected conditions (not mental disorders or infectious disease) (2 sources) Encounter for screening mammogram for malignant neoplasm of breast; Translations: [Encounter for screening for other suspected endocrine disorder] Onset: 12-26-2024 Episodic Other upper respiratory infections (4 sources) Sinusitis; Translations: [Chronic sinusitis, unspecified] 07-23-2020 Chronic Results Test Name Value Interpretation Reference Range Facility Testosterone Freeon 12-31-19 25 TESTOSTER FREE 0.4 pg/mL Normal 0.0-4.2 [facility] Comment on above: Result Comment: Perf ormed at: [facility] [address] [id number] Hedge Fund Accountant: Antione Santos MD, Phone: [phone] Performed By: #### L 500.4100, L100.0100, L3400.4800, L506.0400, L500.4050, L501.9520 #### [facility] [address] [place], [place], [id number] Absolute neutrophil countOrd ered By: Freda Chatman on 12-26-2024 Neutrophils (Bld) [#/Vol] 3.3 10*3/uL 2.0-7.7 [facility] Anion gap in Serum or Plasma Ordered By: Freda Chatman on 12-26-2024 Anion gap [Moles/Vol] 11 mmol/L 5-15 [facility] BUN/creatinine ratioOrdered By: Freda Chatman on 12-26-2024 Urea nitrogen/Creatinine [Mass ratio] 22.8 mg/mg High 10-20 [facility] Basophil percentageOrdered B y: Freda Chatman on 12-26-2024 Basophils/100 WBC (Bld) 0.6 % 0-1 [facility] Bilirubin, totalOrdered By: Freda Chatman on 12-26-2024 Bilirubin [Mass/Vol] 0.27 mg/dL 0.00-1.30 [facility] CBC W/Diff, Automatedon 04 Absolute Lymph 1.35 X10 3/uL Normal 0.83-4.51 [facility] Comment on above: Performed By: #### L 500.4100, L100.0100, L3400.4800, L506.0400, L500.4050, L501.9520 #### [facility] [address] [place], [address] Absolute Neut 3.3 X10 3/uL Normal 2.0-7.7 [facility] Comment on above: Performed By: #### L 500.4100, L100.0100, L3400.4800, L506.0400, L500.4050, L501.9520 #### [facility] [address] [place], [address] Basophils/100 WBC (Bld) 0.6 % Normal 0-1 [facility] Comment on above: Performed By: #### L 500.4100, L100.0100, L3400.4800, L506.0400, L500.4050, L501.9520 #### [facility] [address] [place], [address] Eosinophils/100 WBC (Bld) 2.1 % Normal 0-5 [facility] Comment on above: Performed By: #### L 500.4100, L100.0100, L3400.4800, L506.0400, L500.4050, [id number] #### [facility] [address] [place], [address] Erythrocyte distribution width (RBC) [Ratio] 12.2 % Normal 11.6-14.6 [facility] Comment on above: Performed By: #### L 500.4100, L100.0100, L3400.4800, L506.0400, L500.4050, L501.9520 #### [facility] [address] [place], [address] Hematocrit (Bld) [Volume fraction] 38.5 % Normal 37-47 [facility] Comment on above: Performed By: #### L 500.4100, L100.0100, L3400.4800, L506.0400, L500.4050, L501.9520 #### [facility] [address] [facility] [place], [address] Hemoglobin (Bld) [Mass/Vol] 13.1 g/dL Normal 12.0-15.0 [facility] Comment on above: Performed By: #### L 500.4100, L100.0100, L3400.4800, L506.0400, L500.4050, L501.9520 #### [facility] [address] [facility] [place], [address] IG% 0.200 Normal 0.0-0.9 [facility] Comment on above: Result Comment: IG% - Immature Granulocytes (promyelocytes, myelocytes and metamyelocytes) > 1% indicates that a LEFT SHIFT is Present. Performed By: #### L 500.4100, L100.0100, L3400.4800, L506.0400, L500.4050, L501.9520 #### [facility] [address] [place], [address] Lymphocytes/100 WBC (Bld) 26.2 % Normal 19-41 [facility] Comment on above: Performed By: #### L 500.4100, L100.0100, L3400.4800, L506.0400, L500.4050, L501.9520 #### [facility] [address] [place], [address] MCH (RBC) [Entitic mass] 29.4 pg Normal 27.0-32.0 [facility] Comment on above: Performed By: #### L 500.4100, L100.0100, L3400.4800, L506.0400, L500.4050, L501.9520 #### [facility] [address] [place], [address] MCHC (RBC) [Mass/Vol] 34.0 g/dL Normal 32-36 [facility] Comment on above: Performed By: #### L 500.4100, L100.0100, L3400.4800, L506.0400, L500.4050, L501.9520 #### [facility] [address] [place], [address] MCV (RBC) [Entitic vol] 86.5 fL Normal 81-99 [facility] Comment on above: Performed By: #### L 500.4100, L100.0100, L3400.4800, L506.0400, L500.4050, L501.9520 #### [facility] [address] [place], [address] Monocytes/100 WBC (Bld) 7.4 % Normal 0-10 [facility] Comment on above: Performed By: #### L 500.4100, L100.0100, L3400.4800, L506.0400, L500.4050, L501.9520 #### [facility] [address] [place], [address] Neutrophils/100 WBC (Bld) 63.5 % Normal 47-70 [facility] Comment on above: Performed By: #### L 500.4100, L100.0100, L3400.4800, L506.0400, L500.4050, L501.9520 #### [facility] [address] [place], [address] Nucleated RBC (Bld) [#/Vol] 0 10*3/uL Normal 0-5 [facility] Comment on above: Performed By: #### L 500.4100, L100.0100, L3400.4800, L506.0400, L500.4050, L501.9520 #### [facility] [address] [place], [address] Platelet mean volume (Bld) [Entitic vol] 11.4 fL Normal 6.2-12.0 [facility] Comment on above: Performed By: #### L 500.4100, L100.0100, L3400.4800, L506.0400, L500.4050, L501.9520 #### [facility] [address] [place], [address] Platelets (Bld) [#/Vol] 196 10*3/uL Normal 150-450 [facility] Comment on above: Performed By: #### L 500.4100, L100.0100, L3400.4800, L506.0400, L500.4050, L501.9520 #### [facility] [address] [place], [address] RBC (Bld) [#/Vol] 4.45 10*6/uL Normal 4.2-5.4 [facility] Comment on above: Performed By: #### L 500.4100, L100.0100, L3400.4800, L506.0400, L500.4050, L501.9520 #### [facility] [address] [place], [address] RDW SD 38.8 fl Normal 35.1-43.9 [facility] Comment on above: Performed By: #### L 500.4100, L100.0100, L3400.4800, L506.0400, L500.4050, L501.9520 #### [facility] [address] [place], [address] WBC (Bld) [#/Vol] 5.2 10*3/uL Normal 4.4-11.0 [facility] Comment on above: Performed By: #### L 500.4100, L100.0100, L3400.4800, L506.0400, L500.4050, L501.9520 #### [facility] [address] [place], [address] Calculated very low density lipoprotein (VLDL) cholesterol measurementOrdered By: Freda Chatman on 12-26-2024 VLDL Cholesterol 11 mg/dL 5-40 [facility] Carbon dioxide, total [Moles /volume] in Central venous bloodOrdered By: Freda Chatman on 12-26-2024 CO2 [Moles/Vol] 23.0 mmol/L 21.0-32.0 [facility] Chloride assayOrdered By: Ksenia Chatman on 12-26-2024 Chloride [Moles/Vol] 102 mmol/L 98-108 [facility] Comprehensive Metabolic Prof ilon 12-26-2024 Albumin [Mass/Vol] 4.4 g/dL Normal 3.5-5.0 [facility] Comment on above: Performed By: #### L 500.4100, L100.0100, L3400.4800, L506.0400, L500.4050, L501.9520 #### [facility] [address] [place], [address] Albumin/Globulin [Mass ratio] 1.8 {ratio} Normal 0.9-2.4 [facility] Comment on above: Performed By: #### L 500.4100, L100.0100, L3400.4800, L506.0400, L500.4050, L501.9520 #### [facility] [address] [place], [address] ALK PHOS 55 U/L Normal 35-104 [facility] Comment on above: Performed By: #### L 500.4100, L100.0100, L3400.4800, L506.0400, L500.4050, L501.9520 #### [facility] [address] [place], [address] ALT [Catalytic activity/Vol] 31 U/L Normal <=34 [facility] Comment on above: Performed By: #### L 500.4100, L100.0100, L3400.4800, L506.0400, L500.4050, L501.9520 #### [facility] [address], [address] AST [Catalytic activity/Vol] 29 U/L Normal <=31 [facility] Comment on above: Performed By: #### L 500.4100, L100.0100, L3400.4800, L506.0400, L500.4050, L501.9520 #### [facility] [address] [place], [address] Bilirubin [Mass/Vol] 0.27 mg/dL Normal 0.00-1.30 [facility] Comment on above: Performed By: #### L 500.4100, L100.0100, L3400.4800, L506.0400, L500.4050, L501.9520 #### [facility] [address] [place], [address] BUN/CRE 22.8 RATIO High 10-20 [facility] Comment on above: Performed By: #### L 500.4100, L100.0100, L3400.4800, L506.0400, L500.4050, L501.9520 #### [facility] [address] [place], [address] Calcium [Mass/Vol] 9.9 mg/dL Normal 7.6-11.0 [facility] Comment on above: Performed By: #### L 500.4100, L100.0100, L3400.4800, L506.0400, L500.4050, L501.9520 #### [facility] [address] [place], [address] Chloride [Moles/Vol] 102 mmol/L Normal 98-108 [facility] Comment on above: Performed By: #### L 500.4100, L100.0100, L3400.4800, L506.0400, L500.4050, L501.9520 #### [facility] [address] [place], [address] CO2 [Moles/Vol] 23.0 mmol/L Normal 21.0-32.0 [facility] Comment on above: Performed By: #### L 500.4100, L100.0100, L3400.4800, L506.0400, L500.4050, L501.9520 #### [facility] [address] [place], [address] Creatinine [Mass/Vol] 0.75 mg/dL Normal 0.70-1.20 [facility] Comment on above: Performed By: #### L 500.4100, L100.0100, L3400.4800, L506.0400, L500.4050, L501.9520 #### [facility] [address] [place], [address] GAP 11 Normal 5-15 [facility] Comment on above: Performed By: #### L 500.4100, L100.0100, L3400.4800, L506.0400, L500.4050, L501.9520 #### [facility] [address] [place], [address] GFR/1.73 sq M.predicted among non-blacks MDRD (S/P/Bld) [Vol rate/Area] 92 mL/min/{1.73_m2} Normal >60 [facility] Comment on above: Result Comment: mL/m in/1.73m2 CKD-EPI Creatinine Equation (2020) Performed By: #### L 500.4100, L100.0100, L3400.4800, L506.0400, L500.4050, L501.9520 #### [facility] [address] [place], [address] Globulin (S) [Mass/Vol] 2.4 g/dL Normal 2.2-4.2 [facility] Comment on above: Performed By: #### L 500.4100, L100.0100, L3400.4800, L506.0400, L500.4050, L501.9520 #### [facility] [address] [place], [address] Glucose [Mass/Vol] 89 mg/dL Normal 70-99 [facility] Comment on above: Performed By: #### L 500.4100, L100.0100, L3400.4800, L506.0400, L500.4050, L501.9520 #### [facility] [address] [place], [address] Potassium [Moles/Vol] 4.3 mmol/L Normal 3.3-5.1 [facility] Comment on above: Performed By: #### L 500.4100, L100.0100, L3400.4800, L506.0400, L500.4050, L501.9520 #### [facility] [address] [place], [address] Sodium [Moles/Vol] 136 mmol/L Normal 133-145 [facility] Comment on above: Performed By: #### L 500.4100, L100.0100, L3400.4800, L506.0400, L500.4050, L501.9520 #### [facility] [address] [place], [address] T PROT 6.9 g/dL Normal 5.9-8.4 [facility] Comment on above: Performed By: #### L 500.4100, L100.0100, L3400.4800, L506.0400, L500.4050, L501.9520 #### [facility] [address] [place], [address] Urea nitrogen [Mass/Vol] 17 mg/dL Normal 4-19 [facility] Comment on above: Performed By: #### L 500.4100, L100.0100, L3400.4800, L506.0400, L500.4050, L501.9520 #### [facility] [address] [place], [address] Eosinophil percentageOrdered By: Freda Chatman on 12-26-2024 Eosinophils/100 WBC (Bld) 2.1 % 0-5 [facility] Erythrocyte distribution wid th (RBC) [Ratio]Ordered By: Freda Chatman on 12-26-2024 Erythrocyte distribution width (RBC) [Entitic vol] 38.8 fL 35.1-43.9 [facility] Erythrocyte distribution wid th ratioOrdered By: Freda Chatman on 12-26-2024 Erythrocyte distribution width (RBC) [Ratio] 12.2 % 11.6-14.6 [facility] GFR/1.73 sq M.predicted jose rafael g non-blacks MDRD (S/P/Bld) [Vol rate/Area]Ordered By: Freda Chatman on 12-26-2024 Estimated GFR (MDRD) Non-Af Amer 92 >60 [facility] Comment on above: mL/min/1.73m2 CKD-EP I Creatinine Equation (2020) Hematocrit Auto (Bld) [Volum e fraction]Ordered By: Freda Chatman on 12-26-2024 Hematocrit (Bld) [Volume fraction] 38.5 % 37-47 [facility] Hemoglobin measurementOrdere d By: Freda Chatman on 12-26-2024 Hemoglobin (Bld) [Mass/Vol] 13.1 g/dL 12.0-15.0 [facility] Immature granulocytes/100 WB C Auto (Bld)Ordered By: Freda Chatman on 12-26-2024 Immature granulocytes/100 WBC (Bld) 0.200 % 0.0-0.9 [facility] Comment on above: IG% - Immature Granu locytes (promyelocytes, myelocytes and metamyelocytes) > 1% indicates that a LEFT SHIFT is Present. LDL calc ser/plasOrdered By: Freda Chatman on 12-26-2024 LDL Cholesterol, Calculated 150 mg/dL [facility] Comment on above: Vlblpspqsn=740-223 m g/dL & Higher Gkzg=526 mg/dL or greater Laboratory - Chemistry and C hemistry - challengeOrdered By: Freda Chatman on 12-26-2024 AST [Catalytic activity/Vol] 29 U/L <32 [facility] Lipid Profileon 12-26-2024 CHOL:HDL 3.25 Normal [facility] Comment on above: Performed By: #### L 500.4100, L100.0100, L3400.4800, L506.0400, L500.4050, L501.9520 #### [facility] [address] [place], [address] Cholesterol [Mass/Vol] 233 mg/dL High <=200 [facility] Comment on above: Result Comment: Chol esterol level, Desirable <200 mg/dL Borderline high cholesterol 200-239 mg/dL High cholesterol >=240 mg/dL Recommendations of the NCEP Adult Treatment Panel for the following risk-cutoff thresholds for the [place] population. Performed By: #### L 500.4100, L100.0100, L3400.4800, L506.0400, L500.4050, L501.9520 #### [facility] [address] [place], [address] Cholesterol in HDL [Mass/Vol] 72 mg/dL Normal [facility] Comment on above: Result Comment: [place] onal Cholesterol Education Program (NCEP) guidelines: <40 mg/dL: Low HDL-cholesterol (major risk factor for CHD) >= 60 mg/dL: High HDL-cholesterol (negative risk factor for CHD) HDL-cholesterol is affected by a number of factors, e.g. smoking, exercise, hormones, sex and age. Performed By: #### L 500.4100, L100.0100, L3400.4800, L506.0400, L500.4050, L501.9520 #### [facility] [address] [place], [address] Cholesterol in LDL [Mass/Vol] 150 mg/dL Normal [facility] Comment on above: Result Comment: Bord dfnfcf=167-757 mg/dL Higher Kyum=234 mg/dL or greater Performed By: #### L 500.4100, L100.0100, L3400.4800, L506.0400, L500.4050, L501.9520 #### [facility] [address] [place], [address] Cholesterol in VLDL [Mass/Vol] 11 mg/dL Normal 5-40 [facility] Comment on above: Performed By: #### L 500.4100, L100.0100, L3400.4800, L506.0400, L500.4050, L501.9520 #### [facility] [address] [place], [address] Triglyceride [Mass/Vol] 54 mg/dL Normal [facility] Comment on above: Result Comment: The drugs N-Acetylcysteine and Metamizole may falsely depress this assay. Normal range: <150 mg/dL Borderline High: 150-199 mg/dL High: 200-499 mg/dL Very High: >500 mg/dL Performed By: #### L 500.4100, L100.0100, L3400.4800, L506.0400, L500.4050, L501.9520 #### [facility] [address] [place], [address] Lymphocytes Auto (Unsp spec) [#/Vol]Ordered By: Freda Chatman on 12-26-2024 Lymphocytes (Bld) [#/Vol] 1.35 10*3/uL 0.83-4.51 [facility] Lymphocytes/100 WBC Auto (Un sp spec)Ordered By: Freda Chatman on 12-26-2024 Lymphocytes/100 WBC (Bld) 26.2 % 19-41 [facility] MCV (mean corpuscular volume ) determinationOrdered By: Freda Chatman on 12-26-2024 MCV (RBC) [Entitic vol] 86.5 fL 81-99 [facility] Mean corpuscular hemoglobin (MCH) determinationOrdered By: Freda Chatman on 12-26-2024 MCH (RBC) [Entitic mass] 29.4 pg 27.0-32.0 [facility] Mean corpuscular hemoglobin concentration (MCHC) determinationOrdered By: Freda Chatman on 12-26-2024 MCHC (RBC) [Mass/Vol] 34.0 g/dL 32-36 [facility] Mean platelet volume determi nationOrdered By: Freda Chatman on 12-26-2024 Platelet mean volume (Bld) [Entitic vol] 11.4 fL 6.2-12.0 [facility] Monocyte percentageOrdered B y: Freda Chatman on 12-26-2024 Monocytes/100 WBC (Bld) 7.4 % 0-10 [facility] Neutrophil percentageOrdered By: Freda Chatman on 12-26-2024 Neutrophils/100 WBC (Bld) 63.5 % 47-70 [facility] Nucleated red blood cell per centageOrdered By: Freda Chatman on 12-26-2024 Nucleated RBC/100 WBC (Bld) [Ratio] 0 % 0-5 [facility] Hog Cutter Office Visit Reporton 12-26-2024 [facility] Office Visit Report [facility], [address] [place] [address] OFFICE VISIT Date of Service: 12/26/24 MR#: [id number] Acct: [id number] Name: JOY HARO Rep #: [id number] : 1965 Provider: KELSEA Connor Age/Sex: 59/F [place] [facility] [place]: Signed Intake Vital Signs 01/01/21 07:54 12/26/24 08:54 Height 5 ft 1 in 5 ft 1 in Weight: 161 lb 6 oz BMI 30.4 BP 143/83 H 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Instructions ???Recorded ???Confirmed ???Type pediatric dsyfsave-opuq-msy 1 tablet PO DAILY 12/26/20 5 History (Flintstones Complete (iron) chewable tablet) amlodipine 5 mg-olmesartan 40 mg 1 tab PO QDAY 12/26/24 12/26/24 Hi story tablet estradiol 0.05 mg/24 hr semiweekly 1 patch transdermal 2XW #8 ea 12/26/24 Rx transdermal patch progesterone micronized 100 mg 100 mg PO QAM #30 caps 12/26/24 Rx capsule Is last menstrual period known: No Post menopausal: Yes Patient : No : No Control Method: hyst [facility] Medical History (Updated 12/26/24 @ 09:21 by KELSEA Acosta) Hormone deficiency Hearing difficulty Glaucoma (09/19/22) Gastrointestinal complaints Adrenal insufficiency Pneumonia Parathyroid abnormality Hormone deficiency High triglycerides High blood pressure Calcium deficiency Frequent headaches Carpal tunnel syndrome UTI (urinary tract infection) Back problem Arthritis Adrenal disorder GERD (gastroesophageal reflux disease) Obesity Essential (primary) hypertension Dysphagia History of bronchitis History of pneumonia Atrial septal defect Hyperlipidemia Sinusitis Cough Surgical History (Updated 12/26/24 @ 08:50 by Tyesha Wu) History of hysterectomy History of colonoscopy (09/19/14) History of repair of atrial septal defect (11/02/00) History of right and left heart catheterization (2000) History of parathyroidectomy History of tubal ligation History of tonsillectomy Family History Mother Hypertension High cholesterol Brother High cholesterol PUD (peptic ulcer disease) Father Diabetes CVA (cerebral vascular accident) High cholesterol Other Alcohol abuse Arthritis Asthma Heart disease Kidney disease Mental disorder Respiratory disease Social History adopted: No household members: spouse number of children: 0 current occupational status: employed current occupation: [employer] current occupational exposures/hazards: No pets and animals: Yes (2 furbabies) leisure activities: exercise, music and reading history of recent travel: No sexually active: Yes Smoking Status: Never smoker alcohol intake: current alcohol intake frequency: 0-2 drinks per day substance use type: does not use diet: low carbohydrate well-balanced diet: daily or most days caffeine: Yes Type: coffee and tea eating out: 1-3 times/week during the past year weight has: remained stable what type of physical activity do you participate in: walking frequency: daily seatbelt use: always do you feel safe at home: Yes History 1 Elective abortions Hx Para 0 Spontaneous abortions 1 Hx # Term Pregnancies Ectopic pregnancies Hx # Pregnancies Multiple births # of living children HPI Encounter for routine gynecological examination Details: JOY HARO is a 59 year old who presents for annual exam. She has had a complete hysterectomy. On HRT with progesterone, estradiol patch; and testosterone. She reports she has no issues or concerns. She is here to establish. She would also like to discuss weight loss. She feels she is resistant to weight loss. Last PAP: prior to hyst; normal. History of abnormal PAP: no. Last mammogram: 2024; ultrasound--lymph node benign. History of abnormal mammogram: no. Colon cancer screenin years ago; repeat this year--Dr. Tomlinson. Other preventative health care screenings: Дмитрий Cantor; PCP. Female Reproductive History Questions: metorrhagia: No, sexually active: Yes, dyspareunia: No (more content not included)... Normal [facility] Platelet countOrdered By: Ksenia Chatman on 12-26-2024 Platelets (Bld) [#/Vol] 196 10*3/uL 150-450 [facility] Potassium (Unsp spec) [Mass/ Vol]Ordered By: Freda Chatman on 12-26-2024 Potassium [Moles/Vol] 4.3 mmol/L 3.3-5.1 [facility] RBC Auto (Bld) [#/Vol]Ordere d By: Freda Chatman on 12-26-2024 RBC (Bld) [#/Vol] 4.45 10*6/uL 4.2-5.4 [facility] Screening total cholesterol/ high density lipoprotein (HDL) cholesterol ratioOrdered By: Freda Chatman on 12-26-2024 Cholesterol.total/Choles terol in HDL [Mass ratio] 3.25 {ratio} [facility] Serum creatinine measurement (mass/volume)Ordered By: Freda Chatman on 12-26-2024 Creatinine [Mass/Vol] 0.75 mg/dL 0.70-1.20 [facility] Serum globulin measurementOr dered By: Freda Chatman on 12-26-2024 Globulin (S) [Mass/Vol] 2.4 g/dL 2.2-4.2 [facility] Serum glucose measurement (m ass/volume)Ordered By: Freda Chatman on 12-26-2024 Glucose [Mass/Vol] 89 mg/dL 70-99 [facility] Serum or plasma alanine cervantes otransferase (ALT) measurementOrdered By: Freda Chatman on 12-26-2024 ALT [Catalytic activity/Vol] 31 U/L <35 [facility] Serum or plasma albumin alejandra urement (mass/volume)Ordered By: Freda Chatman on 12-26-2024 Albumin [Mass/Vol] 4.4 g/dL 3.5-5.0 [facility] Serum or plasma albumin/glob ulin mass ratioOrdered By: Freda Chatman on 12-26-2024 Albumin/Globulin [Mass ratio] 1.8 {ratio} 0.9-2.4 [facility] Serum or plasma alkaline kiana sphatase measurementOrdered By: Freda Chatman on 12-26-2024 ALP [Catalytic activity/Vol] 55 U/L 35-104 [facility] Serum or plasma calcium alejandra urement (mass/volume)Ordered By: Freda Chatman on 12-26-2024 Calcium [Mass/Vol] 9.9 mg/dL 7.6-11.0 [facility] Serum or plasma cholesterol in HDL measurement (mass/volume)Ordered By: Freda Chatman on 12-26-2024 Cholesterol in HDL [Mass/Vol] 72 mg/dL >40 [facility] Comment on above: National Cholesterol Education Program (NCEP) guidelines:<40 mg/dL: Low HDL-cholesterol (major risk factor for CHD)>= 60 mg/dL: High HDL-cholesterol (negative risk factor for CHD)HDL-cholesterol is affected by a number of factors, e.g. smoking, exercise, hormones, sex and age. Serum or plasma cholesterol measurement (mass/volume)Ordered By: Freda Chatman on 12-26-2024 Cholesterol [Mass/Vol] 233 mg/dL High <201 [facility] Comment on above: Cholesterol level, D esirable <200 mg/dLBorderline high cholesterol 200-239 mg/dLHigh cholesterol >=240 mg/dLRecommendations of the NCEP Adult Treatment Panel for the following risk-cutoff thresholds for the [place] population. Serum or plasma urea nitroge n measurement (mass/volume)Ordered By: Freda Chatman on 12-26-2024 Urea nitrogen [Mass/Vol] 17 mg/dL 4-19 [facility] Sodium levelOrdered By: Shahnaz Chatman on 12-26-2024 Sodium [Moles/Vol] 136 mmol/L 133-145 [facility] T4 Free Directon 12-26-2024 T4 FREE DIRECT 1.10 ng/dL Normal 0.76-1.46 [facility] Comment on above: Performed By: #### L 500.4100, L100.0100, L3400.4800, L506.0400, L500.4050, L501.9520 #### [facility] [address] [place], [address] T4 freeOrdered By: Freda lund on 12-26-2024 Free T4 [Mass/Vol] 1.10 ng/dL 0.76-1.46 [facility] TSH DL <= 0.005 mIU/L QnOrde red By: Freda Chatman on 12-26-2024 Thyroid Stimulating Hormone (TSH) 2.410 uIU/mL 0.300-4.200 [facility] Testosterone Free [Mass/Vol] Ordered By: Freda Chatman on 12-26-2024 Free Testosterone 0.4 pg/mL 0.0-4.2 [facility] Comment on above: Performed at: [address] [id number] Director: Antione Santos MD, Phone: [phone] Thyroid Stim Hormone (TSH)on 12-26-2024 TSH 2.410 uIU/mL Normal 0.300-4.200 [facility] Comment on above: Performed By: #### L 500.4100, L100.0100, L3400.4800, L506.0400, L500.4050, L501.9520 #### [facility] [address] [facility], [address] Total proteinOrdered By: Ar Chatman on 12-26-2024 Protein [Mass/Vol] 6.9 g/dL 5.9-8.4 [facility] Triglycerides measurementOrd ered By: Freda Chatman on 12-26-2024 Triglyceride [Mass/Vol] 54 mg/dL <199 [facility] Comment on above: The drugs N-Acetylcy steine and Metamizole may falsely depress this assay. Normal range: <150 mg/dLBorderline High: 150-199 mg/dLHigh: 200-499 mg/dLVery High: >500 mg/dL White blood cell (WBC) count Ordered By: Freda Chatman on 12-26-2024 WBC (Bld) [#/Vol] 5.2 10*3/uL 4.4-11.0 [facility] Breast Limited Unilateralon 10-12-2024 Breast Limited Unilateral [facility] Services [address] [place] [address] Breast Limited Unilateral MR#: [id number] Acct: [id number] Name: JOY HARO Rep #: [id number] : 1965 F 59 From: Uziel montalvo MD PCP: Dr. Дмитрий Cantor MD Status: REG CLI Study: Breast Limited Unilateral Date of Exam: Exam# [id number] Ordering Dr: Дмитрий Cantor MD [id number] STUDY: ULTRASOUND BREAST - RIGHT REASON FOR EXAM: Female, 59 years old. Abnormal screening mammogram. TECHNIQUE: Axial and longitudinal images of the RIGHT breast were performed with a high resolution ultrasound transducer. # OF IMAGES: [id number] COMPARISON: Comparison is made with prior mammogram dated October 10, 2024. FINDINGS: RIGHT Breast: The upper-outer quadrant of the right breast was examined with ultrasound. The mammographic abnormality corresponds to a 6 mm x 5 mm x 4 mm benign-appearing lymph node at the 10:00 position of the breast at 3 cm from the nipple. US/Breast Limited Unilateral IMPRESSION: The mammographic abnormality corresponds to a 6 mm x 5 mm x 4 mm benign-appearing lymph node at the 10:00 position of the breast at 3 cm from nipple. Routine mammographic follow-up recommended. ASSESSMENT CATEGORY: BIRADS Category 2: Benign. A letter regarding these results will be sent to the patient by the facility within 30 days. Electronically Signed: Uziel Freed MD at 11:53 EST , CC: Dr. Дмитрий Cantor MD Ambulatory Care Nurse: Signed Normal [facility] SCRN MAMM (CAD)W/JOHNY BILATo n 10-10-2024 SCRN MAMM (CAD)W/JOHNY BILAT [facility] Imaging Services [address] [address] SCRN MAMM (CAD)W/JOHNY BILAT MR#: [id number] Acct: [id number] Name: JOY HARO Rep #: [id number] : 1965 F 59 From: Uziel montalvo MD PCP: Dr. Дмитрий Cantor MD Status: REG [facility] Study: SCRN MAMM (CAD)W/JOHNY BILAT Date of Exam: 09/20 11/13 Exam# [id number] Ordering Dr: Дмитрий Cantor MD [id number] MAMMOGRAPHY - BILATERAL SCREENING REASON FOR EXAM: Female, 59 years old. Routine annual screening examination. PERTINENT HISTORY: Aunt with breast cancer. TECHNIQUE: Digital bilateral breast johny (3D mammographic acquisition) in the CC and MLO projections. 2-D mediolateral oblique (MLO) and craniocaudad (CC) views of both breasts were obtained. CAD: Full Field Digital Mammography with Computer Added Detection was performed. COMPARISON: Comparison is made with prior study January 24, 2023 and September 10, 2021. FINDINGS: Breast Composition: There are scattered areas of fibroglandular density. There is a 5.5 mm x 5 mm well-defined nodule in the slightly upper lateral aspect of the right breast. Correlation with ultrasound is recommended. No other significant abnormalities are identified. BI/SCRN MAMM (CAD)W/JOHNY BILAT IMPRESSION: 5.5 mm x 5 mm well-defined nodule in the slightly upper lateral aspect of the right breast. Sonographic correlation recommended. ASSESSMENT CATEGORY: BIRADS Category 0: Incomplete. Need additional imaging evaluation. A letter regarding these results will be sent to the patient by the facility within 30 days. Approximately 10% of breast cancers are not detected by mammography. A normal mammogram should not delay biopsy of a clinically suspicious abnormality. [id number] Electronically Signed: Uziel Freed MD at 8:55 EST , CC: Dr. Дмитрий Cantor MD Ambulatory Care Nurse: Signed Normal [facility] Basophil percentageon 2021 Chloride [Moles/Vol] 105 mmol/L 98-107 [facility] Work Phone: Glucose [Mass/Vol] 86 mg/dL 74-106 [facility] Work Phone: Potassium [Moles/Vol] 4.0 mmol/L 3.5-5.1 [facility] Work Phone: [phone] Sodium [Moles/Vol] 140 mmol/L 136-145 [facility] Work Phone: WBC (Bld) [#/Vol] 4.9 10*3/uL 4.4-11.0 [facility] Work Phone: Blood erythrocytes count (nu mber/volume)on 06-16-2022 RBC (Bld) [#/Vol] 4.27 10*6/uL 4.2-5.4 [facility] Work Phone: Blood hemoglobin measurement (mass/volume)on 06-16-2022 Hemoglobin (Bld) [Mass/Vol] 12.1 g/dL 12.0-15.0 [facility] Work Phone: Blood platelet mean volumeon 06-16-2022 Platelet mean volume (Bld) [Entitic vol] 11.6 fL 6.2-12.0 [facility] Work Phone: Determination of erythrocyte mean corpuscular volume (MCV)on 06-16-2022 MCV (RBC) [Entitic vol] 85.5 fL 81-99 [facility] Work Phone: Hematocrit Auto (Bld) [Volum e fraction]on 06-16-2022 Hematocrit (Bld) [Volume fraction] 36.5 % 37-47 [facility] Work Phone: Laboratory - Chemistry and C hemistry - challengeon 06-16-2022 CO2 [Moles/Vol] 28.0 mmol/L 21.0-32.0 [facility] Work Phone: Magnesium [Mass/Vol] 2.1 mg/dL 1.6-2.6 [facility] Work Phone: T4 [Mass/Vol] 10.5 ug/dL 4.8-13.9 [facility] Work Phone: Urea nitrogen/Creatinine [Mass ratio] 25.3 mg/mg 10-20 [facility] Work Phone: Laboratory - Hematology and Cell countson 06-16-2022 Erythrocyte distribution width (RBC) [Entitic vol] 39.5 fL 35.1-43.9 [facility] Work Phone: Erythrocyte distribution width (RBC) [Ratio] 12.7 % 11.6-14.6 [facility] Work Phone: MCH (RBC) [Entitic mass] 28.3 pg 27.0-32.0 [facility] Work Phone: MCHC Auto (RBC) [Mass/Vol]on 06-16-2022 MCHC (RBC) [Mass/Vol] 33.2 g/dL 32-36 [facility] Work Phone: No Panel Informationon 06-16 Estimated GFR (MDRD) Amer 102 mL/min >60 [facility] Work Phone: Comment on above: GFR Calc Estimated GFR (MDRD) Non-Af Amer 85 mL/min >60 [facility] Work Phone: Comment on above: Non- GFR Calc Thyroid Stimulating Hormone (TSH) 2.41 uIU/mL 0.358-3.74 [facility] Work Phone: Platelets bldon 06-16-2022 Platelets (Bld) [#/Vol] 222 10*3/uL 150-450 [facility] Work Phone: Serum or plasma calcium alejandra urement (mass/volume)on 06-16-2022 Calcium [Mass/Vol] 10.2 mg/dL 8.5-10.1 [facility] Work Phone: Serum or plasma creatinine m easurement (mass/volume)on 06-16-2022 Creatinine [Mass/Vol] 0.75 mg/dL 0.55-1.02 [facility] Work Phone: Comment on above: The validity of the calculated GFR & GFRAA in patients over 70 years has not been determined. Clinical correlation is essential. Serum or plasma urea nitroge n measurement (mass/volume)on 06-16-2022 Urea nitrogen [Mass/Vol] 19 mg/dL 7-18 [facility] Work Phone: Thin prep Papanicolaou smear with manual screeningon 06-16-2022 Thin prep Papanicolaou smear with manual screening 7 5-15 [facility] Work Phone: PREGUon 09-11-2019 HCG ( test) Ql (U) Negative Normal [facility] Comment on above: Performed By: #### P REGU #### [id number] [place], [place] [address] test (u) int HCG not detected. [facility] Comment on above: Performed By: #### P REGU #### [address] [place], [place] [address] Vital Signs Date Time Vital Sign Value Performing Clinician Eliane diaz 12-26-2024 08:54-0400 Body height 154.[address] Дмитрий Cantor MD Work Phone: [facility] 12-26-2024 08:54-0400 Body mass index (BMI) [Ratio] 30.4 kg/m2 Dr. Дмитрий Cantor MD Work Phone: [facility] 12-26-2024 08:54-0400 Body weight 73.[address] Дмитрий Cantor MD Work Phone: [facility] 12-26-2024 08:54-0400 Diastolic blood pressure 83 mm[Hg] Dr. Дмитрий Cantor MD Work Phone: [facility] 12-26-2024 08:54-0400 Systolic blood pressure 143 mm[Hg] Dr. Дмитрий Cantor MD Work Phone: [facility] Encounters Encounter Date Encounter Type Care Provider Facility Start: 12-26-2024 End: 12-26-2024 Patient encounter procedure Freda ENAMORADO -[facility] Work Phone: Start: 12-26-2024 End: 12-26-2024 Patient encounter status Freda ENAMORADO [facility] Start: 12-26-2024 End: 12-26-[address] Дмитрий Cantor MD Work Phone: [facility] Work Phone: Start: 12-26-2024 End: 12-26-2024 ambulatory Дмитрий Cantor Facility:[facility] Start: 10-12-2024 End: 10-12-[address] Дмитрий Cantor [facility] Work Phone: Start: 10-12-2024 End: 10-12-2024 ambulatory Дмитрий Cantor Facility:[facility] Start: 10-10-2024 End: 10-10-[address] Дмитрий Cantor MD -[facility] Work Phone: Start: 10-10-2024 End: 10-10-2024 ambulatory Дмитрий Cantor Facility:[facility] Start: 08-23-2023 End: 12-05-2023 ambulatory [facility] Work Phone: Start: 08-23-2023 End: 08-23-2023 Patient encounter procedure [facility] Work Phone: Start: 01-24-2023 End: 01-24-2023 ambulatory [facility] Work Phone: Start: 01-24-2023 End: 01-24-2023 Patient encounter procedure [facility] Start: 06-16-2022 End: 06-16-2022 ambulatory [facility] Work Phone: Start: 06-16-2022 End: 06-16-2022 Patient encounter procedure [facility] Start: 06-16-2020 Patient encounter status [facility] Start: 09-24-2010 End: 09-24-2010 Telephone encounter [facility] Hernandez ([place]) Work Phone: General Surgery Comment on above: Results Procedures Date Procedure Procedure Detail Performing Clinician Start: 10-12-[address] Дмитрий Cantor MD Work Phone: Start: 10-10-2024 Screening mammography Bruce Cantor MD Work Phone: Start: 08-23-2023 Dual energy X-ray absorptiometry Start: 01-24-2023 Screening mammography Plan of Treatment Date Care Activity Detail Author Start: 05-20-2021 Influenza vaccination INFLUENZ A (Season Ended) [facility] Start: 2015 Screening for malign ant neoplasm of colon [facility] Start: 2015 SHINGRIX VACCINE (1 of 2) HERNÁNDEZ GRIX VACCINE (1 of 2) [facility] Start: 2010 DIABETES SCREEN DIABETES SCREEN [facility] Start: 2010 LIPID SCREEN LIPID SCREEN [facility] Start: 2005 Mammography MAMMOGRAM [facility] Start: 1995 HPV TESTING HPV TESTING [facility] Start: 1986 PAP TESTING PAP TESTING [facility] Start: 1984 Urine microalbumin profile DTAP,TDAP,TD (1 - Tdap) [facility] Start: 1983 HEPATITIS C SCREENING HEPATITIS C SC REENING [facility] Start: 1983 HIV SCREENING HIV SCREENING [facility] Start: 1977 Adult depression screening assessment DEPRESSION SCREENING [facility] MG Breast - bilatera l Screening [facility] Payers Date Payer Category Payer Private Health Insurance [id number] 2024 Self-pay [id number] 2006 Unknown MMO [employer] [id number] 2006-2016 PPO [id number] Private Health Insurance [employer] [id number] Unknown ANTHEM [id number] Unknown [id number] Unknown [id number] Unknown [id number] Unknown [id number] Social History Date Type Detail Facility Start: 06-03-2010 End: 12-26-2020 Tobacco smoking status NHIS Never smoker [facility] Start: 06-03-2010 Alcohol intake Not Asked [facility] Start: 1965 [facility] Start: 12-26-2020 End: 12-26-2020 Tobacco smoking status VAIS Unknown if ever smoked [facility] Start: 07-15-2020 Non-smoker [facility] Start: 1965 Sex Assigned At Female [facility] Start: 12-31-2024 Sex Female (finding) [facility] Gender Identity Identifies as fe male gender (finding) [facility] Sexual Orientation Heterosexual (finding) [facility] Evaluation note 12-26-2024 Note Date & Type Note Facility 12-26-2024 Evaluation note Diagnosis Onset Date Resolution Climacteric acute December 26 8:47am Obesity (BMI 30-39.9) acute Apr 2024 8:47am Encounter for routine gynecological examination noneactive December 26, 2024 8:47am [facility] Work Phone: Note 09-24-2010 Telephone Encounter - Malik Lott, Madiha - 09/24/2010 11:00 AM EST Note Date & Type Note Facility 09-24-2010 Miscellaneous Notes Please call the patient and advise her that the calcium level is normal. Thank you, Virginia Hernandez PA-C Left message for pt to call office. Madiha Gan Rn documented in this encounter [facility] Evaluation note Note Date & Type Note Facility Evaluation note No assessment information availa ble [facility] Work Phone: Reason for referral (narrative) Note Date & Type Note Facility Reason for referral (narrative) No reason for referral information available [facility] Work Phone: Summary Purpose Family History No Family History Records Found Relationship Condition Age at Onset Recorded Date/T lorie Not Specified Alcohol abuse Unknown Arthritis Unknown Cardiac disease Unknown Kidney disorder Unknown Mental disorder Unknown Disorder of respiratory system Unknown Asthma Unknown mother Hypertension Unknown High blood cholesterol Unknown brother High blood cholesterol Unknown Peptic ulcer Unknown father Diabetes mellitus Unknown Cerebrovascular accident (CVA) Unknown Advance Directives No Advanced Directives Records Found Advance Directive Response Recorded Date/ Time Living Will Yes July 24 5:51pm Power of Turner In Yes July 24, 2020 5:51pm Advance Directive Response Recorded Date/ Time Living Will Yes July 24 4:51pm Power of Turner In Yes July 24, 2020 4:51pm Chief Complaint and Reason for Visit Chief Complaint CHRONIC CONSTIPATION Chief Complaint SCREENING Chief Complaint CLIMACTERIC Chief Complaint Admit Date SCREENING October 10, 2024 1 :41pm ABN MAMM RIGHT BREAST October 12, 2024 9:29am Annual ([employer]) December 26, 2024 8:47 am Reason for Visit Admit Date Climacteric December 26, 2024 8:47 am Obesity (BMI 30-39.9) December 26, 2024 8: 47am Encounter for routine gynecological exam ination December 26, 2024 8:47am Additional Source Comments INFORMATION SOURCE (unrecogn ized section and content) DATE CREATED AUTHOR 09/11/2019 [facility] ([place]) DATE CREATED AUTHOR AUTHOR'S ORGANIZ ATION [facility] Source Comments (unrecognize d section and content) In the event this informatio n is protected by the Federal Confidentiality of Alcohol and Drug Abuse Patient Records regulations: The Federal rules restrict any use of the information to criminally investigate or prosecute any alcohol or drug abuse patient.[facility] Reason for Visit (unrecogniz ed section and content) Reason Onset Date Comments Results 09/24/2010 Goals (unrecognized section and content) Goals may be documented in a n alternate sectionGoals may be documented in an alternate sectionGoals may be documented in an alternate sectionGoals may be documented in an alternate section Care Teams (unrecognized sec tion and content) Team Status: Active Member Role Status Dates Dr. Дмитрий Cantor MD Family Provider Active Dr. Дмитрий Cantor MD Primary Care Provider Active Team Status: Inactive Member Role Status Dates Dr. Дмитрий Cantor MD Primary Care Provi olivia, Attending Provider, Referring Provider Active Team Status: Inactive Member Role Status Dates Dr. Дмитрий Cantor MD Primary Care Provider Active Dr. Isabel Constantino MD Attending Provider, Refer ring Provider Active Team Status: Active Member Role Status Dates Dr. Дмитрий Cantor MD Primary Care Provider Active Team Status: Inactive Member Role Status Dates Dr. Дмитрий Cantor MD Primary Care Provider Active Start: October 10, 2024 End: October 10, 2024 Dr. Дмитрий Cantor MD Attending Provider Active Start: October 10, 2024 End: October 10, 2024 Dr. Дмитрий Cantor MD Referring Provider Active Start: October 10, 2024 End: October 10, 2024 Team Status: Inactive Member Role Status Dates Dr. Дмитрий Cantor MD Primary Care Provider Active Start: October 12, 2024 End: October 12, 2024 Dr. Дмитрий Cantor MD Attending Provider Active Start: October 12, 2024 End: October 12, 2024 Dr. Дмитрий Cantor MD Referring Provider Active Start: October 12, 2024 End: October 12, 2024 Team Status: Inactive Member Role Status Dates Dr. Дмитрий Cantor MD Primary Care Provider Active Start: December 26, 2024 End: December 26, 2024 Dr. Дмитрий Cantor MD Referring Provider Active Start: December 26, 2024 End: December 26, 2024 KELSEA Acosta Attending Provider Active Start: December 26, 2024 End: December 26, 2024 Team Status: Inactive Member Role Status Dates Dr. Дмитрий Cantor MD Primary Care Provider Active Start: December 26, 2024 End: December 26, 2024 KELSEA Acosta Attending Provider Active Start: December 26, 2024 End: December 26, 2024 KELSEA Acosta Referring Provider Active Start: December 26, 2024 End: December 26, 2024 FOR RECORDS PERTAINING TO PATIENTS WHO ARE OR HAVE BEEN ENROLLED IN A CHEMICAL DEPENDENCY/SUBSTANCEABUSE PROGRAM, SOME INFORMATION MAY BE OMITTED. This clinical summary was aggregated from multiple sources. Caution should be exercised in using it in the provision of clinical care. This summary normalizes information from multiple sources, and as a consequence, information in this document may materially change the coding, format and clinical context of patient data. In addition, data may be omitted in some cases. CLINICAL DECISIONS SHOULD BE BASED ON THE PRIMARY CLINICAL RECORDS. [facility] [employer] provides no warranty or guarantee of the accuracy or completeness of information in this document.
[2025-05-18 08:55] LABS: Hematocrit 37.1 % (37-47); Hemoglobin 12.7 g/dL (12.0-15.0); Mean Corp Hgb Conc 34.2 g/dL (32-36); Mean Corpuscular Volume 85.3 fL (81-99); Mean Platelet Vol. 11.0 fl (6.2-12.0); Platelet Count 189 K/mm3 (150-450); RBC Distribution Width CV 12.3 % (11.6-14.6); RBC Distribution Width SD 38.7 fl (35.1-43.9); Red Blood Count 4.35 M/mm3 (4.2-5.4); White Blood Count 4.9 K/mm3 (4.4-11.0)
[2025-05-18 09:37] LABS: AST(SGOT) 30 U/L (<=31); Alanine Aminotransfer ALT/SGPT 39 U/L (<=34); Albumin, Serum 4.4 g/dL (3.4-4.8); Alkaline Phosphatase 76 U/L (35-104); Anion Gap 12 (5-15); BUN 22 mg/dL (4-19); BUN/Creat Ratio 26.9 RATIO (10-20); Calcium,Total 10.4 mg/dL (7.6-11.0); Carbon Dioxide 22.5 mmol/L (21.0-32.0); Chloride 100 mmol/L (98-108); Cholesterol 228 mg/dL (<=200); Globulin 2.5 g/dL (2.2-4.2); Glucose 88 mg/dL (70-99); Low Density Lipoprotein Calc. 142 mg/dL; Potassium 4.2 mmol/L (3.3-5.1); Triglycerides 49 mg/dL; Very Low Density Lipoprotein 10 mg/dL (5-40); cholesterol:hdl ratio screen 3.00
[2025-05-18 09:40] LABS: CORTISOL AM 14.30 ug/dL (6.02-18.40); Ferritin 36 ng/mL (22-378); Follicle Stimulating Hormone 85.3 mIU/mL; Vitamin B12 808 pg/mL (180-914); Vitamin D,25 Hydroxy 64.5 ng/mL (30-100)
[2025-05-19 09:08] LABS: CRP, High Sensitivity 1.19 mg/L (0.00-3.00)
== END | disposition home or self-care (01) ==
PROVIDERS: PCP Family Medicine; Referring Provider Obstetrics & Gynecology; Visit Provider Obstetrics & Gynecology
DX: E55.9 Vitamin D deficiency, unspecified (principal); E78.5 Hyperlipidemia, unspecified; N91.1 Secondary amenorrhea; N95.1 Menopausal and female climacteric states; N89.9 Noninflammatory disorder of vagina, unspecified; R53.83 Other fatigue
CPT/HCPCS: 36415; 80053; 80061; 82306; 82533; 82607; 82627; 82670; 82728; 83001; 83036; 83525; 84146; 84270; 84402; 84403; 85027; 86141; 82626

== ENCOUNTER 2025-08-13 13:30 | Outpatient (RCR) | payer OTHER, SELFPAY | END 2025-08-18 23:59 | LOC: NS 13:30 | PROVIDERS: PCP Family Medicine; Referring Provider Family Medicine; Visit Provider Family Medicine | DX: Z71.3 Dietary counseling and surveillance (principal); E78.5 Hyperlipidemia, unspecified | CPT/HCPCS: 97802; 97803 ==